=== PATIENT | female | born 1950 | race Caucasian/White ===

== ENCOUNTER 2018-10-26 14:15 | Emergency (ER) | payer MEDICARE, SELFPAY ==
[2018-10-26] VITALS (16 sets, daily range): BP systolic 103–132; BP diastolic 51–88; PULSE 16–86; RESP 10–23; TEMP 36.3–36.6; O2SAT 95–100; BMI 34.4
--- NOTE | 2018-10-26 14:28 | DI.RAD.S_ITS ---
PROCEDURE: XR HUMERUS RT 2V INDICATIONS: pain injury TECHNIQUE: 2 views of the humerus were acquired. COMPARISON: None. FINDINGS: The humeral head of the right shoulder is noted to be positioned anterior to the glenoid, compatible with anterior dislocation. There may be a Hill-Sachs deformity of the posterosuperior aspect of the humeral head. Anteroinferior margin of the glenoid is grossly intact. No suspicious osseous lesions are present. The overlying soft tissues are unremarkable. There are mild to moderate degenerative changes of the acromioclavicular joint on the right. IMPRESSION: 1. Anterior right shoulder dislocation. 2. Probable Hill-Sachs deformity of the humeral head. Dictated by: Wyatt Aleman M.D. on 10/26/2018 at 14:11 Approved by: Wyatt Aleman M.D. on 10/26/2018 at 14:14
[2018-10-26] MEDS: PROPOFOL 200 MG/20 ML VIAL 100 MG IV (15:00)
--- NOTE | 2018-10-26 15:05 | DI.RAD.S_ITS ---
PROCEDURE: XR SHOULDER RT MIN 2V INDICATIONS: reduction TECHNIQUE: 2 views of the shoulder were acquired. COMPARISON: [facility], CR, XR HUMERUS RT 2V, 10/26/2018, 14:55. FINDINGS: Bones: There is interval reduction of earlier noted anterior dislocation of glenohumeral joint. Right shoulder alignment is now anatomic. No gross fracture is seen. 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 No suspicious bony lesions. Visualized ribs appear intact. Soft tissues: No suspicious soft tissue calcifications. IMPRESSION: Interval reduction of previously noted glenohumeral joint dislocation with anatomic shoulder alignment. No obvious fracture is seen. Dictated by: Scott Stanford M.D. on 10/26/2018 at 15:22 Approved by: Scott Stanford M.D. on 10/26/2018 at 15:26
--- NOTE | 2018-10-26 15:28 | ED.UPPEXIN ---
HPI - Extremity Injury (Upper) General Chief Complaint: Extremity Injury, Upper Stated Complaint: Fell, R arm pain Time Seen by Provider: 10/26/18 14:41 Source: patient and EMS Mode of arrival: EMS Limitations: no limitations History of Present Illness HPI narrative: Patient is 68-year-old female who is currently in the process of moving she tripped over a rug and landed on her right shoulder. She has an obvious deformity of her right shoulder she is able to move her fingers no numbness or tingling. She also hit her right upper lip no head injury no loss of consciousness. She has no neck pain he is not on any anti-platelet or anticoagulation medication. MD complaint: injury to: right and shoulder Related Data Previous Rx's Medication Instructions Recorded hydrocodone-acetaminophen [[place]] 1 tab PO Q6H PRN #10 tab 10/26/18 Allergies Allergy/AdvReac Type Severity Reaction Status Date / Time Penicillins Allergy Verified 10/26/18 14:26 Review of Systems Review of Systems GENERAL: Denies chills, fatigue, malaise, fever, sweats, travel HEENT: Denies sinus pain, ear pain, sore throat, difficulty swallowing, neck pain RESPIRATORY: Denies dyspnea, cough, wheezing, hemoptysis, sputum. CARDIOVASCULAR: Denies chest pain, palpitations, orthopnea, edema GASTROINTESTINAL: Denies nausea, vomiting, abdominal pain, diarrhea, constipation, melena. : Denies dysuria, frequency, incontinence, hematuria, urinary retention, flank pain. MUSCULOSKELETAL: See HPI SKIN: No rash, no erythema, no pruritus NEUROLOGIC: Denies weakness, dizziness, headache, numbness, change in speech, confusion PSYCHIATRIC: No concerning psychosocial issues. 12 point review of systems is negative except for those stated above and HPI [facility] Medical History Patient denies medical problems (Acute) Social History Smoking Status: Never smoker alcohol intake: current substance use type: does not use Exam Initial Vital Signs Initial Vital Signs: Vital Signs Temperature 97.8 F 10/26/18 14:26 Pulse Rate 84 10/26/18 14:26 Respiratory Rate 19 10/26/18 14:26 Blood Pressure 126/51 L 10/26/18 14:26 Pulse Oximetry 96 10/26/18 14:26 Alert pleasant female HEENT: Head atraumatic, no crepitations no depressions no contusion, EOMI, pupils reactive, right upper lip swollen and contusion. Teeth intact NECK: Supple no tenderness turning full rotation right and left flexion and extension CARDIOVASCULAR: Regular rate and rhythm without murmurs, rubs or gallops. RESPIRATORY: Breath sounds equal bilaterally, no wheezes rales or rhonchi. ABDOMEN: Soft, nontender. Normoactive bowel sounds all 4 quadrants. No guarding or rebound. EXTREMITIES: Normal range of motion, no clubbing or edema. Neurovascularly intact Right shoulder obvious deformity no clavicle step-off sensation intact her deltoid able to move wrist and fingers radial median and ulnar nerve intact distal radial pulse intact NEUROLOGICAL: Alert and oriented x4.Normal gait and speech SKIN: Warm, dry, no laceration, no petechiae, no rashes or lesions. Procedures Orthopedic Joint Reduction Joint #1: Time Out Performed: Yes Side: right Joint Reduction Location: shoulder Analgesia: procedural sedation Shoulder Technique Used (if applicable): traction/counter-traction and external rotation Post-reduction neuro exam: intact and no change Post-reduction vascular: intact and no change Post Reduction X-Ray Obtained: Yes Post Reduction X-Ray Results: reduced Splint Applied: Yes Patient Tolerated Procedure: Well Procedural Sedation Patient Age: Patient is 5yrs or older Indication: fracture/dislocation reduction ASA Class: I Mallampati Airway Classification: Class I Preparation: quality assurance monitor final applied, pulse oximeter, capnometry used and supplemental O2 applied IV Propofol dose (mg): 100 Time of Sedation (Min): 15 ED Sedation Level: Moderate (Concious) Patient Tolerated Procedure: Well Complications: none Course Orders Ordered: ED Orders 10/26/18 14:28 XR humerus RT 2V Stat 10/26/18 15:05 XR shoulder RT min 2V Stat Discontinued Medications Propofol (Diprivan) 100 mg IV NOW ONE Stop: 10/26/18 15:50 Last Admin: 10/26/18 15:00 Dose: 100 mg Vital Signs - 8 hr 10/26/18 14:26 10/26/18 14:45 10/26/18 14:55 Temperature 97.8 F 97.4 F L Pulse Rate 84 75 Pulse Rate [Right Radial] 77 Respiratory Rate 19 16 Blood Pressure 126/51 L Blood Pressure [Left Arm] 132/64 Pulse Oximetry 96 100 10/26/18 15:00 10/26/18 15:05 10/26/18 15:10 Temperature Pulse Rate 77 72 78 Pulse Rate [Right Radial] Respiratory Rate 12 10 L 10 L Blood Pressure Blood Pressure [Left Arm] 129/69 117/55 L 103/87 Pulse Oximetry 100 98 95 10/26/18 15:15 10/26/18 15:20 10/26/18 15:25 Temperature Pulse Rate 72 16 L 72 Pulse Rate [Right Radial] Respiratory Rate 14 16 16 Blood Pressure Blood Pressure [Left Arm] 113/81 126/55 L 128/59 L Pulse Oximetry 99 99 100 10/26/18 15:30 10/26/18 15:35 10/26/18 15:36 Temperature Pulse Rate 77 79 86 Pulse Rate [Right Radial] Respiratory Rate 14 16 23 Blood Pressure Blood Pressure [Left Arm] 120/88 116/64 Pulse Oximetry 100 100 10/26/18 15:39 10/26/18 15:40 10/26/18 15:45 Temperature 97.4 F L Pulse Rate 77 72 Pulse Rate [Right Radial] 77 Respiratory Rate 16 16 Blood Pressure Blood Pressure [Left Arm] 123/62 131/64 Pulse Oximetry 100 100 10/26/18 17:09 Temperature 97.4 F L Pulse Rate 78 Pulse Rate [Right Radial] Respiratory Rate 16 Blood Pressure 124/74 Blood Pressure [Left Arm] Pulse Oximetry 100 MDM - Extremity Injury (Upper) Lab Data Point of Care Testing Test Results Negative Imaging Data right shoulder XR #1: Radiologist's impression: PROCEDURE: XR HUMERUS RT 2V INDICATIONS: pain injury TECHNIQUE: 2 views of the humerus were acquired. COMPARISON: None. FINDINGS: The humeral head of the right shoulder is noted to be positioned anterior to the glenoid, compatible with anterior dislocation. There may be a Hill-Sachs deformity of the posterosuperior aspect of the humeral head. Anteroinferior margin of the glenoid is grossly intact. No suspicious osseous lesions are present. The overlying soft tissues are unremarkable. There are mild to moderate degenerative changes of the acromioclavicular joint on the right. IMPRESSION: 1. Anterior right shoulder dislocation. 2. Probable Hill-Sachs deformity of the humeral head. Dictated by: Wyatt Aleman M.D. on 10/26/2018 at 14:11 right shoulder XR #2: Radiologist's impression: PROCEDURE: XR SHOULDER RT MIN 2V INDICATIONS: reduction TECHNIQUE: 2 views of the shoulder were acquired. COMPARISON: [facility], CR, XR HUMERUS RT 2V, 10/26/2018, 14:55. FINDINGS: Bones: There is interval reduction of earlier noted anterior dislocation of glenohumeral joint. Right shoulder alignment is now anatomic. No gross fracture is seen. 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 No suspicious bony lesions. Visualized ribs appear intact. Soft tissues: No suspicious soft tissue calcifications. IMPRESSION: Interval reduction of previously noted glenohumeral joint dislocation with anatomic shoulder alignment. No obvious fracture is seen. Dictated by: Scott Stanford M.D. on 10/26/2018 at 15:22 MDM Narrative Medical decision making narrative: Patient tolerated procedure sedation well. She is awake alert neurovascularly intact. Feels ready and able to go home. She has a ride. Consent signed and in chart. Discharge Plan Departure Patient Disposition: Home Clinical Impression: Dislocation of right shoulder joint Discharge Date/Time: 10/26/18 17:00 Interventions: ED Discharge Assessment Last Done: 10/26/18 17:09 Instructions: DI for Shoulder Dislocation Activity Restrictions/Additional Instructions: *You have been diagnosed with right shoulder dislocation *What to do: Keep arm in sling for the next 1-2 days may remove as needed increase activity as tolerated *Continue to take medications as directed [place] 1 tablet every 6 hr if needed for severe pain Motrin 600 mg every 6-8 hours if needed for [id number] *Follow up with your primary care provider in 2-3 days *Return to ER if you should have numbness, tingling, increased pain or any new, worsening or concerning symptoms CONTROLLED SUBSTANCE DISCHARGE (Narcotoic/benzodiazepine/Flexeril/Phenergan) 1. You have been prescribed narcotic medications, it does have acetaminophen/Tylenol/paracetamol in it so do not take extra Tylenol or Tylenol containing products 2. Please understand that we cannot provide further refills of narcotics, benzodiazepines or controlled substances through the ED and her pain management will need to be through your provider. 3. While on these medications you cannot drive or operate heavy machinery. 4. You cannot sign legal documents or perform any duties such as this. 5. As long as you're taking opiate pain medications he should also be taking a stool softener such as Colace, Dulcolax, MiraLAX or prune juice, to help avoid constipation. Prescriptions: New hydrocodone-acetaminophen [[place]] 5-325 mg tablet 1 tab PO Q6H PRN (Reason: pain) Qty: 10 RF: 0 Referrals: [facility] [Provider Group]
== END 2018-10-26 17:00 | disposition home or self-care (01) ==
PROVIDERS: Emergency Provider Emergency Medicine
DX: S43.004A Unspecified dislocation of right shoulder joint, initial encounter (principal); W01.0XXA Fall on same level from slipping, tripping and stumbling without subsequent striking against object, initial encounter
CPT/HCPCS: 23650; 73030; 73060; 94770; 99152; 99284; 99285; J2704

== ENCOUNTER → 2019-03-22 15:44 | Outpatient (CLI) | payer MEDICARE, SELFPAY ==
--- NOTE | 2019-03-22 | DI.ECHO.S_ITS ---
[place] [facility]---------+ [facility] +---------+ : : [address] : : : : [id number] : : : : Phone: [phone] Echocardiogram Report + + :Name: ANNA ESTEVES Study Date: 03/22/2019 Height: 69 in : :[facility] Exam Location: [facility] Weight: 223 lb : : Gender: Female BSA: 2.2 m2 : :: 1950 Age: 68 yrs BP: 126/72 mmHg: :Reason For Study: Murmur : :Ordering Physician: Mimi : :[place] Performed By: Rocio Garcia : + + Interpretation Summary The left ventricle is normal in size, wall thickness, and systolic function without any focal wall motion abnormalities. The ejection fraction is estimated to be 60-65%. Diastolic parameters suggest probable normal left ventricular diastolic function and normal filling pressures. The right ventricle is normal in size and function. Right ventricular systolic pressure is estimated to be 24 mmHg plus the clinically estimated CVP which cannot be estimated on this exam. Both atria are normal in size. There is moderate aortic stenosis. The peak aortic velocity is 3.0 m/sec. The calculated aortic valve area is 1.1 cm2. There is no other significant valvular heart disease. The aortic root is normal size. Procedure: A two-dimensional transthoracic echocardiogram with color flow and Doppler was performed. The study quality was technically adequate. There is no prior echocardiogram noted for this patient. The patient was in normal sinus rhythm during the exam. Left Ventricle: The left ventricle is normal in size, wall thickness, and systolic function without any focal wall motion abnormalities. The ejection fraction is estimated to be 60-65%. Diastolic parameters suggest probable normal left ventricular diastolic function and normal filling pressures. Right Ventricle: The right ventricle is normal in size and function. Atria: Both atria are normal in size. There is no Doppler evidence for an interatrial shunt. Mitral Valve: The mitral valve leaflets appear mildly thickened, but open well. There is trace mitral regurgitation. Aortic Valve: The aortic valve is trileaflet. The aortic valve is mildly calcified. There is moderate aortic stenosis. The peak aortic velocity is 3.0 m/sec. The aortic valve mean gradient is 17.8 mmHg. The calculated aortic valve area is 1.1 cm2. There is trace aortic regurgitation. Tricuspid Valve: The tricuspid valve is normal in structure and function. There is trace tricuspid regurgitation. Right ventricular systolic pressure is estimated to be 24 mmHg plus the clinically estimated CVP which cannot be estimated on this exam. Pulmonic Valve: The pulmonic valve is not well seen, but is grossly normal. There is mild pulmonic regurgitation. There is no other significant valvular heart disease. Great Vessels: The aortic root is normal size. The ascending aorta is normal in size. The pulmonary artery is not well visualized, but is probably normal size. The inferior vena cava was not well visualized. The IVC has a measurement of 1.4 mm. Pericardium/ Pleura There is no pericardial effusion. There is no pleural effusion. MMode/2D Measurements & Calculations LVIDd: 4.0 cm LVOT diam: 2.1 cm LVIDs: 2.9 cm Ao root diam: 3.0 cm FS: 28.9 % asc Aorta Diam: 3.1 cm EPSS: 0.39 cm Ao Arch Diam (Prox Trans): 2.9 cm IVSd: 0.89 cm LVPWd: 0.82 cm LV howard. diameter/BSA (cm/m^2): 1.9 LV sys. diameter/BSA (cm/m^2): 1.3 LA A2 area: 17.9 cm2 RA long axis: 6.1 cm LA A4 area: 22.7 cm2 RA area: 19.2 cm2 LA length (vol): 5.9 cm RA vol: 51.6 ml LA vol: 58.0 ml RA : 23.8 ml/m2 LA vol index: 26.8 ml/m2 IVC diam: 1.4 cm RVD1 (basal): 4.2 cm RVD2 (mid): 3.3 cm Doppler Measurements & Calculations Ao V2 max: 297.9 cm/sec LVOT Max Maciej: 83.7 cm/sec Ao V2 mean: 191.1 cm/sec LV V1 max P.8 mmHg Ao max P.5 mmHg LV V1 VTI: 19.5 cm Ao mean P.8 mmHg MAXI(I,D): 1.1 cm2 Ao V2 VTI: 63.6 cm MAXI(V,D): 0.97 cm2 sev ratio: 0.31 MAXI indexed to BSA (cm^2/m^2): 0.49 MV E max maciej: 82.9 cm/sec TR max maciej: 245.2 cm/sec MV A max maciej: 85.6 cm/sec TR max P.1 mmHg MV E/A: 0.97 PA V2 max: 80.3 cm/sec Med Peak E' Maciej: 6.2 cm/sec PA V2 mean: 54.7 cm/sec E/E' med: 13.4 PA mean P.3 mmHg Lat Peak E' Maciej: 7.7 cm/sec PA Accel Time: 0.11 sec E/E' lat: 10.8 E/e' average: 12.1 MV dec time: 0.19 sec MV P1/2t: 55.1 msec MV P1/2t max maciej: 80.7 cm/sec SV(LVOT): 67.7 ml MVA(P1/2t): 4.0 cm2 Reading Physician:06:50 PM
== END ==
PROVIDERS: PCP Internal Medicine; Visit Provider Internal Medicine
DX: I35.0 Nonrheumatic aortic (valve) stenosis (principal); I37.1 Nonrheumatic pulmonary valve insufficiency; R01.1 Cardiac murmur, unspecified
CPT/HCPCS: 93306

== ENCOUNTER → 2019-06-25 10:32 | Outpatient (CLI) | payer MEDICARE, SELFPAY ==
--- NOTE | 2019-06-25 | DI.CT.S_ITS ---
PROCEDURE: CT SINUS SCREEN WO CON INDICATIONS: Acute recurrent sinusitis, unspecified TECHNIQUE: Noncontrast 3.0 mm axial images acquired from the frontal sinuses to the mid-sella, with coronal and sagittal reformats. For radiation dose reduction, the following was used: automated exposure control, adjustment of mA and/or kV according to patient size. COMPARISON: None. FINDINGS: Image quality: Excellent. Maxillary Sinuses: No bony remodeling or destruction. Sinuses are clear. Ethmoid Air Cells: No bony remodeling or destruction. Sinuses are clear. Sphenoid Sinuses: No bony remodeling or destruction. Sinuses are clear. Frontal Sinuses: No bony remodeling or destruction. Sinuses are clear. Ostiomeatal Complexes: Ostiomeatal complexes are patent. No Kelley cells. Miscellaneous: Visualized intra-orbital contents are normal. No morena bullosa or paradoxical turbinate curvature. There is moderate leftward nasal septal deviation. Incidental note is made of hyperostosis frontalis. This is not considered to be pathologic in a woman of this age. Focal degenerative change is seen of the right temporomandibular joint, with spur formation, as on series 5 image 56. IMPRESSION: No significant active paranasal sinus disease is seen. Moderate leftward nasal septal deviation seen. Focal right TMJ degeneration. If it would be helpful for clinical management decision making, please consider a dedicated TMJ protocol MRI, performed with closed mouth and open-mouth images for further evaluation (assuming that there is no contraindication). Dictated by: Campos Franco M.D. on 06/25/2019 at 9:48 Approved by: Campos Franco M.D. on 06/25/2019 at 9:50
== END ==
PROVIDERS: PCP Internal Medicine; Visit Provider Otolaryngology
DX: J01.91 Acute recurrent sinusitis, unspecified (principal); J34.89 Other specified disorders of nose and nasal sinuses; J34.2 Deviated nasal septum; M26.69 Other specified disorders of temporomandibular joint
CPT/HCPCS: 70486

== ENCOUNTER → 2019-08-18 10:18 | Outpatient (CLI) | payer MEDICARE, SELFPAY ==
[2019-08-18 12:07] LABS: Alanine Aminotransferase 17 IU/L (9-52); Albumin 4.2 g/dL (3.5-5.0); Albumin Globulin Ratio 1.4 (1.0-2.8); Alkaline Phosphatase 90 U/L (38-126); Aspartate Aminotransferase 25 IU/L (14-36); BUN Creatinine Ratio 15.6 (6-22); Bilirubin Total 0.6 mg/dL (0.2-1.3); Blood Urea Nitrogen 14 mg/dL (7-17); Calcium 9.7 mg/dL (8.4-10.2); Carbon Dioxide 27 mmol/L (22-32); Chloride 102 mmol/L (98-107); Cholesterol 226 mg/dL (140-199); Estimated Glomerular Filt Rate > 60.0 mL/min (>60); Glucose 84 mg/dL (80-110); HDL Cholesterol 48 mg/dL (40-60); HEMOLYSIS < 15 (0-50); LDL Cholesterol Calculated 153 mg/dL (<100); Sodium 138 mmol/L (137-145); Total Protein 7.2 g/dL (6.3-8.2); Triglycerides 124 mg/dL (35-150)
[2019-08-18 12:11] LABS: Add Manual Diff / Slide Review NO; Basophils Absolute Auto 0 /uL (0-100); Basophils Percent Auto 0.5 % (0-2); Eosinophils Absolute Auto 100 /uL (0-450); Eosinophils Percent Auto 1.4 % (2-4); Hematocrit 40.8 % (36-46); Lymphocytes Absolute Auto 1600 /uL (1100-4500); Lymphocytes Percent Auto 32.4 % (25-40); Mean Corpuscular HGB Conc 34.4 % (30-36); Mean Corpuscular Hemoglobin 31.6 PG (26-34); Mean Corpuscular Volume 91.9 fL (80-100); Monocytes Absolute Auto 700 /uL (0-900); Monocytes Percent Auto 13.3 % (3-14); Neutrophils Absolute Auto 2600 /uL (1500-7000); Neutrophils Percent Auto 52.4 % (50-75); Platelet Count 250 X10^3/uL (150-400); Red Blood Cell Count 4.44 X10^6/uL (4.0-5.2); Red Cell Distribution Width 13.9 % (11.6-14.8); White Blood Cell Count 4.9 X10^3/uL (4.5-11.0)
[2019-08-18 12:55] LABS: TSH w/ Reflex to FT4 0.55 uIU/mL (0.47-4.68)
== END ==
PROVIDERS: PCP Internal Medicine; Visit Provider Physician Assistant
DX: E78.2 Mixed hyperlipidemia (principal); E03.9 Hypothyroidism, unspecified
CPT/HCPCS: 36415; 80053; 80061; 84443; 85025

== ENCOUNTER → 2019-09-03 13:19 | Outpatient (CLI) | payer MEDICARE, SELFPAY ==
[2019-09-03 15:38] LABS: Vitamin B12 258 pg/mL (239-931)
[2019-09-06 21:49] LABS: Albumin 3.6 g/dL (3.8-4.8); Alpha 1 Globulin 0.4 g/dL (0.2-0.3); Alpha 2 Globulin 0.7 g/dL (0.5-0.9); Beta 1 Globulin 0.5 g/dL (0.4-0.6); Protein, Total 6.7 g/dL (6.1-8.1)
== END ==
PROVIDERS: PCP Internal Medicine; Visit Provider Internal Medicine
DX: Z00.00 Encounter for general adult medical examination without abnormal findings (principal)
CPT/HCPCS: 36415; 82607; 84155; 84165

== ENCOUNTER → 2019-09-10 12:32 | Outpatient (CLI) | payer MEDICARE, SELFPAY ==
--- NOTE | 2019-09-10 | DI.MRI.S_ITS ---
PROCEDURE: MR LUMBAR SPINE WO CON INDICATIONS: Radiculopathy, lumbar region TECHNIQUE: Noncontrast sagittal T1 spin echo and T2 fast echo, sagittal STIR, axial T1 and T2 fast spin echo through the lumbar spine. In cases with scoliosis, additional coronal T2 fast spin echo may be performed. COMPARISON: None. FINDINGS: Image quality: Excellent. Alignment and Curvature: There is mild retrolisthesis seen at L2-L3, L3-L4, L4-L5, and L5-S1. Bone Marrow: Marrow is of normal overall signal. No acute vertebral body compression fractures. Spinal Cord: Conus medullaris terminates at the L1 level. Visualized cord demonstrates normal signal and size. Paraspinous Soft Tissues: No paravertebral masses. T11-T12: Moderate loss of disc height and disc signal are seen. Mild to moderate disc bulge is seen. No significant neural foraminal or central canal narrowing can be seen. T12-L1: Normal appearance. L1-L2: Normal appearance. L2-L3: There is at least moderate loss of disc height and disc signal seen. Endplate irregularity is seen. Reactive marrow endplate changes are seen, which are hyperintense on T1-weighted and T2-weighted imaging and most consistent with fatty metaplasia (Modic type II changes). There is at least moderate disc bulge seen, which is eccentric to the right. There is moderate bilateral neural foraminal narrowing seen, right worse than left. Moderate central canal narrowing is seen. L3-L4: Moderate loss of disc height is seen. Loss of disc signal is seen. Reactive marrow endplate changes are seen, which are hyperintense on T1-weighted and T2-weighted imaging and most consistent with fatty metaplasia (Modic type II changes). Moderate disc bulge is seen, which is eccentric to the left side. Moderate facet joint hypertrophy is seen. Moderate central canal narrowing is seen. L4-L5: Moderate loss of disc height is seen. Loss of disc signal is seen. There is at least moderate disc bulge seen, which is eccentric to the right. Reactive marrow endplate changes are seen, which are hyperintense on T1-weighted and T2-weighted imaging and most consistent with fatty metaplasia (Modic type II changes). Moderate to prominent right-sided and moderate left-sided neural foraminal narrowing can be seen. There is at least moderate bilateral neural foraminal narrowing seen. There is a degree of compression seen upon the exiting nerve roots. Moderate central canal narrowing is seen. L5-S1: At least moderate loss of disc height and disc signal can be seen. Moderate disc bulge is seen at this level. Moderate facet joint hypertrophy is seen. At least moderate bilateral neural foraminal narrowing is seen. There is a degree of compression seen upon the exiting nerve roots. Mild central canal narrowing is seen. IMPRESSION: Multiple levels of relatively prominent lumbar spine degenerative changes are seen. Dictated by: Campos Franco M.D. on 09/10/2019 at 14:44 Approved by: Campos Franco M.D. on 09/10/2019 at 14:48
== END ==
PROVIDERS: PCP Internal Medicine; Visit Provider Internal Medicine
DX: M51.16 Intervertebral disc disorders with radiculopathy, lumbar region (principal)
CPT/HCPCS: 72148

== ENCOUNTER → 2019-09-24 18:31 | Outpatient (ROUT) | payer MEDICARE, SELFPAY ==
[2019-09-28 23:39] LABS: Intrinsic Factor Blocking Aby NEGATIVE
== END ==
PROVIDERS: PCP Internal Medicine; Visit Provider Internal Medicine
DX: E53.8 Deficiency of other specified B group vitamins (principal)
CPT/HCPCS: 86340

== ENCOUNTER → 2019-10-16 09:47 | Outpatient (CLI) | payer MEDICARE, SELFPAY ==
--- NOTE | 2019-10-16 | DI.MG.S_ITS ---
BILATERAL DIGITAL SCREENING MAMMOGRAM 3D/2D WITH CAD: 10/16/2019 CLINICAL: Routine screening. Comparison is made to exams dated: 08/16/2010 mammogram, 04/26/2014 mammogram, and 08/21/2016 mammogram - [facility]. There are scattered fibroglandular elements in both breasts. Current study was also evaluated with a Computer Aided Detection (CAD) system. No significant masses, calcifications, or other findings are seen in either breast. There has been no significant interval change. IMPRESSION: NEGATIVE There is no mammographic evidence of malignancy. A 1 year screening mammogram is recommended. This exam was interpreted at Station ID: [id number]. NOTE: For mammograms, a report in lay terms will be sent to the patient. Approximately 15% of breast malignancies will not be visualized mammographically. In the management of a palpable breast mass, a negative mammogram must not discourage biopsy of a clinically suspicious lesion. Electronically Signed By: Sherwin Kent M.D. at/andrew:10/18/2019 07:57:07 letter sent: Normal Exam ACR BI-RADS Category 1: Negative [id number]
== END ==
PROVIDERS: PCP Internal Medicine; Visit Provider Internal Medicine
DX: Z12.31 Encounter for screening mammogram for malignant neoplasm of breast (principal)
CPT/HCPCS: 77063; 77067

== ENCOUNTER → 2020-07-04 12:46 | Outpatient (CLI) | payer MEDICARE, SELFPAY ==
--- NOTE | 2020-07-04 12:48 | DI.RAD.S_ITS ---
PROCEDURE: XR LUMBAR SPINE MIN 4V INDICATIONS: back pain TECHNIQUE: 5 views of the lumbar spine were acquired. COMPARISON: None. FINDINGS: Bones: 5 nonrib-bearing vertebrae are present. There is normal bony alignment. Degenerative endplate changes and bilateral facet arthrosis throughout lumbar spine is seen. No vertebral body compression fractures. No suspicious bony lesions. Soft tissues: Overlying bowel gas pattern is normal. No suspicious soft tissue calcifications. Oblique images: No pars defects. No significant bony foraminal stenosis. IMPRESSION: Degenerative disc disease throughout lumbar spine. No acute compression fracture or spondylolisthesis. No gross pars defect or significant bony foraminal stenosis. Dictated by: Scott Stanford M.D. on 07/04/2020 at 14:16 Approved by: Scott Stanford M.D. on 07/04/2020 at 14:16
== END ==
PROVIDERS: PCP Internal Medicine; Referring Provider Internal Medicine; Visit Provider Physical Medicine & Rehabilitation
DX: M51.26 Other intervertebral disc displacement, lumbar region (principal); M51.36 Other intervertebral disc degeneration, lumbar region
CPT/HCPCS: 72110

== ENCOUNTER → 2020-07-24 14:20 | Outpatient (CLI) | payer MEDICARE, SELFPAY ==
[2020-07-25 07:42] LABS: COVID19 Sendout Not Detected (Not Detect)
== END ==
PROVIDERS: PCP Internal Medicine; Visit Provider Physician Assistant
DX: Z11.59 Encounter for screening for other viral diseases (principal)
CPT/HCPCS: 87635

== ENCOUNTER 2020-07-27 13:48 | Outpatient (CLI) | payer MEDICARE, SELFPAY ==
[2020-07-27] VITALS (10 sets, daily range): BP systolic 112–133; BP diastolic 55–72; PULSE 82–93; RESP 10–23; O2SAT 98–100
--- NOTE | 2020-07-27 13:53 | DI.RAD.S_ITS ---
PROCEDURE: PAIN L/S TRANSFORAMINAL INJECT INDICATIONS: SPONDYLOSIS COMPARISON: None. FINDINGS: Fluoroscopic spot filming was performed to verify placement of spinal needles at the right L4-L5 epidural space via trans foraminal approach as labeled on the films. Appropriate location(s) of the needle tip(s) was confirmed by injection of iodinated contrast. IMPRESSION: Access needle at the right L4-L5 epidural space. Dictated by: Gretel Leslie MD, PhD on 07/27/2020 at 15:34 Approved by: Gretel Leslie MD, PhD on 07/27/2020 at 15:34
[2020-07-27] MEDS: fentaNYL 100 MCG/2 ML INJ 50 MCG IV (14:41)
[2020-07-27] MEDS: BETAMETHASONE 30 MG/5 ML MDV 6 MG INJ (14:47)
[2020-07-27] MEDS: DEXAMETHASONE 10 MG/ML VIAL 20 MG INJ (14:47)
[2020-07-27] MEDS: BUPIVACAINE 0.25% (PF) VIAL 2 ML INJ (14:48)
[2020-07-27] MEDS: IOPAMIDOL 15 ML VIAL 3 ML INJ (14:48)
[2020-07-27] MEDS: MIDAZOLAM 5 MG/5 ML VIAL IV (14:48)
--- NOTE | 2020-07-27 15:00 | P.PCN_ITS ---
Date/Time/Diagnoses Date of procedure: 07/27/20 Time of procedure: 15:00 Pre-procedure diagnosis: 1. FORAMINAL STENOSIS WITH LE SYMPTOMS Post-procedure diagnosis: same Procedure Notes Procedure: 1. FLUOROSCOPICALLY GUIDED CONTRAST CONTROLLED TRANSFORAMINAL EPIDURAL STEROID INJECTION - RIGHT L4/5 TFESI Indications: Mere is referred by Dr. Gilliland for treatment of Foraminal Stenosis with Right LE Symptoms Physician: Cristino Horn Total Fluoroscopy time (seconds): 9 Total sedation minutes: 12 Complications: none Procedure in detail & Post-procedure care: FINDINGS Foraminal Nerve Root Compression secondary to disc disease and facet hypertrophy DESCRIPTION OF PROCEDURE Following review of allergy and review of potential side effects and complications, including, but not necessarily limited to, infection, allergic reaction, local tissue breakdown, stroke, temporary or permanent nerve injury, paralysis, and possible , the patient indicated that the patient understood and agreed to proceed. An informed consent document was signed by the patient, witnessed by a nurse, and placed in the patient's chart. Additionally, other treatment options including medications, modalities, and physical therapy were reviewed with the patient. After review of previous anaesthesic history and IV conscious sedation the patient was deemed safe to proceed with today?s procedure with IV conscious sedation as ASA class II designation. Safety time-out was performed to confirm patient ID, procedure to be performed and site of procedure. IV sedation was accomplished with a combination of 3mg of Versed and 50mcg of Fentanyl was administered by the RN after DO order, titrated to patient comfort during the course of the procedure while the patient remained responsive to all verbal commands In the prone position following sterile prep and drape of the lumbar region, the Right L4/5 posterior neuroforamen was identified fluoroscopically. The skin was anesthetized via a 25-gauge 1.5-inch needle with 1% lidocaine solution. At this point, a 22-gauge 5-inch spinal needle was atraumatically introduced and advanced under fluoroscopic guidance through the posterior Right L4/5 neuroforamen to approximately the anterior aspect of the canal. Depth was confirmed on lateral view. Following negative aspiration, injection of approximately 1.5cc of Isovue 200 under live fluoroscopy in the AP view confirmed excellent flow along the nerve root, into the epidural space without vascular or intrathecal uptake observed Radiological data, including multiple fluoroscopic views of the lumbosacral spine, reveal a spinal needle at the right L4/5 posterior neuroforamen. Subsequent views show flow of contrast material flowing superiorly and inferiorly along the nerve root confirming epidural flow. Subsequently, a test dose of 1.5 cc of 1% lidocaine solution was administered and patient was observed for two minutes for signs or symptoms of complications, including abdominal pain, shortness of breath, bilateral upper or lower extremity weakness, nausea and vomiting, prior to steroid injection. At this point, a total of 3cc or 20mg of dexamethasone and 6mg of betamethasone was injected without incident. The procedure tolerated the procedure well without signs or symptoms of complications prior to transfer to the recovery area continued monitoring without incident. The patient was then transferred to the recovery area where they were observed for an appropriate time after the injection. The patient reported a VAS score of 7 prior to the procedure and a post- procedure VAS of 0. POST OP INSTRUCTIONS The patient was provided a Pain Log to continue to record their response to the target-specific procedure prior to follow-up visit with their referring physician. Additionally, specific post-injection care instructions and a contact number to our office were provided if concerns arise regarding possible complications associated with the procedure are suspected.
--- NOTE | 2020-07-27 16:04 | PC.NURSE ---
All Sedation Medication administered by FAUSTO Amaya. All other procedural meds administered by Dr. Horn
--- NOTE | 2020-07-27 16:04 | PC.NURSE ---
All Sedation Medication administered by FAUSTO Amaya. All other procedural meds administered by Dr. Horn
== END 2020-07-27 15:44 | disposition home or self-care (01) ==
PROVIDERS: PCP Internal Medicine; Referring Provider Physical Medicine & Rehabilitation; Visit Provider Physical Medicine & Rehabilitation
DX: M48.061 Spinal stenosis, lumbar region without neurogenic claudication (principal); M51.16 Intervertebral disc disorders with radiculopathy, lumbar region
CPT/HCPCS: 64483; 99152; J0702; J1100; J2250; J3010

== ENCOUNTER → 2020-09-07 14:40 | Outpatient (ROUT) | payer MEDICARE, SELFPAY ==
[2020-09-07 14:56] LABS: Add Manual Diff / Slide Review NO; Basophils Absolute Auto 100 /uL (0-100); Eosinophils Absolute Auto 100 /uL (0-450); Eosinophils Percent Auto 1.2 % (2-4); Hematocrit 42.6 % (36-46); Lymphocytes Absolute Auto 1300 /uL (1100-4500); Mean Corpuscular HGB Conc 32.9 % (30-36); Mean Corpuscular Hemoglobin 31.1 PG (26-34); Mean Corpuscular Volume 94.5 fL (80-100); Monocytes Absolute Auto 700 /uL (0-900); Monocytes Percent Auto 12.2 % (3-14); Neutrophils Absolute Auto 3800 /uL (1500-7000); Neutrophils Percent Auto 63.6 % (50-75); Platelet Count 237 X10^3/uL (150-400); Red Blood Cell Count 4.51 X10^6/uL (4.0-5.2); Red Cell Distribution Width 14.1 % (11.6-14.8)
[2020-09-07 15:07] LABS: Alanine Aminotransferase 12 IU/L (<35); Albumin 3.7 g/dL (3.5-5.0); Albumin Globulin Ratio 1.2 (1.0-2.8); Alkaline Phosphatase 89 U/L (38-126); Aspartate Aminotransferase 24 IU/L (14-36); BUN Creatinine Ratio 17.2 (6-22); Bilirubin Total 0.7 mg/dL (0.2-1.3); Blood Urea Nitrogen 15 mg/dL (7-17); Calcium 9.5 mg/dL (8.4-10.2); Carbon Dioxide 29 mmol/L (22-32); Chloride 105 mmol/L (98-107); Cholesterol 163 mg/dL (140-199); Estimated Glomerular Filt Rate > 60.0 mL/min (>60); Glucose 88 mg/dL (80-110); HDL Cholesterol 57 mg/dL (40-60); HEMOLYSIS < 15 (0-50); LDL Cholesterol Calculated 78 mg/dL (<100); Potassium 4.2 mmol/L (3.4-5.1); Sodium 138 mmol/L (137-145); Total Protein 6.7 g/dL (6.3-8.2); Triglycerides 139 mg/dL (35-150)
[2020-09-07 15:31] LABS: TSH w/ Reflex to FT4 0.66 uIU/mL (0.47-4.68)
[2020-09-07 15:49] LABS: Vitamin B12 474 pg/mL (239-931)
== END ==
PROVIDERS: PCP Internal Medicine; Visit Provider Internal Medicine
DX: E53.8 Deficiency of other specified B group vitamins (principal); E78.2 Mixed hyperlipidemia
CPT/HCPCS: 80053; 80061; 82607; 84443; 85025

== ENCOUNTER → 2020-11-17 11:01 | Outpatient (CLI) | payer MEDICARE, SELFPAY ==
[2020-11-17] MEDS: COVID-19 VACC #1, MRNA(MOD) 100 MCG/0.5 ML VIAL IM (11:04)
== END ==
PROVIDERS: PCP Internal Medicine; Visit Provider Internal Medicine
DX: Z23 Encounter for immunization (principal)
CPT/HCPCS: 0011A; 91301

== ENCOUNTER → 2020-11-30 14:52 | Outpatient (CLI) | payer MEDICARE, SELFPAY ==
--- NOTE | 2020-11-30 14:54 | DI.ECHO.S_ITS ---
[facility] +---------+ : : [address] : : : : [address] : : : : Phone: [phone]+ Echocardiogram Report + + :Name: ANNA ESTEVES Study Date: 11/30/2020 Height: 69.5 in: :[facility] ReadingLocation: Weight: 230 lb : : Gender: Female BSA: 2.2 m2 : :: 1950 Age: 70 yrs BP: 135/76 mmHg: :Reason For Study: AORTIC STENOSIS : :Ordering Physician: JENNIFER, : :JAYY Performed By: Radha Esposito : :Referring: JAYY ELI : + + Interpretation Summary 1) Normal left ventricular thickness, size, and systolic function (EF 60-65%). 2) Normal right ventricular size and function. 3) Moderate to severe aortic stenosis (valve area 0.9cm2, mean gradient 33mmHg, severity ratio 0.32). 4) Compared to the Echo done 03/22/2019, aortic stenosis has progressed from moderate to moderate-severe on this study. Procedure: A two-dimensional transthoracic echocardiogram with color flow and Doppler was performed. The study quality was technically difficult. Comparison is made with the echocardiogram of 03/22/2019. The patient was in sinus rhythm with heart rates between 73-87 bpm during the exam. Left Ventricle: The left ventricle is normal in size and wall thickness. The ejection fraction is estimated to be 60-65%. Left ventricular systolic function is normal. There are no obvious focal wall motion abnormalities noted but poor endocardial definition reduces the sensitivity for the detection of such. Right Ventricle: The right ventricle is normal in size and function. Atria: Both atria are normal in size. There is no Doppler evidence for an interatrial shunt. Mitral Valve: The mitral valve is normal in structure and function. There is trace mitral regurgitation. Aortic Valve: The aortic valve is moderately calcified. There is moderately reduced leaflet mobility. There is severe aortic stenosis. The peak aortic velocity is 3.7 m/sec. The aortic valve mean gradient is 33 mmHg. The calculated aortic valve area is .90 cm2. No aortic regurgitation is present. Tricuspid Valve: The tricuspid valve is not well visualized, but is grossly normal. There is mild tricuspid regurgitation. Pulmonary artery pressures cannot be estimated because of the lack of a measurable TR jet velocity. Pulmonic Valve: The pulmonic valve is not well visualized. There is trace pulmonic regurgitation. Great Vessels: The aortic root is normal size. The dimensions of the ascending aorta are normal. The inferior vena cava was not well visualized. Pericardium/ Pleura There is no pericardial effusion. There is no pleural effusion. MMode/2D Measurements & Calculations LVIDd: 4.6 cm LVOT diam: 1.9 cm LVIDs: 3.2 cm Ao root diam: 2.8 cm FS: 31.5 % asc Aorta Diam: 3.2 cm IVSd: 0.76 cm Ao Arch Diam (Prox Trans): 3.1 cm LVPWd: 0.95 cm LV howard. diameter/BSA (cm/m^2): 2.1 LV sys. diameter/BSA (cm/m^2): 1.4 LA A2 area: 18.2 cm2 RA long axis: 4.5 cm LA A4 area: 16.9 cm2 RA area: 14.2 cm2 LA length (vol): 5.2 cm RA vol: 38.2 ml LA vol: 50.3 ml RA : 17.3 ml/m2 LA vol index: 22.8 ml/m2 RVD1 (basal): 2.6 cm TAPSE: 1.7 cm Doppler Measurements & Calculations Ao V2 max: 365.7 cm/sec LVOT Max Maciej: 123.6 cm/sec Ao V2 mean: 274.2 cm/sec LV V1 max P.1 mmHg Ao max P.6 mmHg LV V1 VTI: 26.8 cm Ao mean P.4 mmHg MAXI(I,D): 0.90 cm2 Ao V2 VTI: 84.4 cm MAXI(V,D): 0.95 cm2 sev ratio: 0.32 MAXI indexed to BSA (cm^2/m^2): 0.41 MV E max maciej: 89.8 cm/sec PA V2 max: 89.5 cm/sec MV A max maciej: 114.3 cm/sec PA V2 mean: 60.3 cm/sec MV E/A: 0.79 PA mean P.7 mmHg Med Peak E' Maciej: 7.7 cm/sec PA pr(Accel): 48.2 mmHg E/E' med: 11.7 Lat Peak E' Maciej: 7.3 cm/sec E/E' lat: 12.3 E/e' average: 12.0 MV dec time: 0.26 sec SVLVOT): 75.7 ml Reading Physician:04:30 PM
== END ==
PROVIDERS: PCP Internal Medicine; Referring Provider Internal Medicine Cardiovascular Disease; Visit Provider Internal Medicine Cardiovascular Disease
DX: I08.2 Rheumatic disorders of both aortic and tricuspid valves (principal)
CPT/HCPCS: 93306

== ENCOUNTER → 2020-12-15 11:14 | Outpatient (CLI) | payer MEDICARE, SELFPAY ==
[2020-12-15] MEDS: COVID-19 VACC #2, MRNA(MOD) 100 MCG/0.5 ML VIAL IM (11:19)
== END ==
PROVIDERS: PCP Internal Medicine; Visit Provider Internal Medicine
DX: Z23 Encounter for immunization (principal)
CPT/HCPCS: 0012A; 91301

== ENCOUNTER → 2021-01-16 14:00 | Outpatient (CLI) | payer MEDICARE, SELFPAY ==
[2021-01-16 15:08] LABS: COVID19 -Nasal RAPID Negative (Negative)
== END ==
PROVIDERS: PCP Student in an Organized Health Care Education/Training Program; Visit Provider Physical Medicine & Rehabilitation
DX: Z20.822 Contact with and (suspected) exposure to COVID-19 (principal)
CPT/HCPCS: 87635; C9803

== ENCOUNTER 2021-01-18 13:43 | Outpatient (CLI) | payer MEDICARE, SELFPAY ==
[2021-01-18] VITALS (8 sets, daily range): BP systolic 106–151; BP diastolic 56–71; PULSE 75–80; RESP 16–22; TEMP 36.3; O2SAT 97–100
--- NOTE | 2021-01-18 13:44 | DI.RAD.S_ITS ---
PROCEDURE: PAIN L/S FACET INJ/BLK 1ST ALONZO COMPARISON: None. INDICATIONS: SPONDYLOSIS FINDINGS: Intraoperative images demonstrate axis needles at the level of the right L4-L5 and L5-S1 neural foramina. IMPRESSION: Access needles at the level of the right L4-L5 and right L5-S1 neural foramina. Dictated by: Gretel Leslie MD, PhD on 01/18/2021 at 14:46 Approved by: Gretel Leslie MD, PhD on 01/18/2021 at 14:47
[2021-01-18] MEDS: MIDAZOLAM 5 MG/5 ML VIAL IV (14:15)
[2021-01-18] MEDS: fentaNYL 100 MCG/2 ML INJ 50 MCG IV (14:15)
[2021-01-18] MEDS: BETAMETHASONE 30 MG/5 ML MDV 12 MG INJ (14:24)
[2021-01-18] MEDS: LIDOCAINE 1% 20 ML 10 ML INJ (14:24)
[2021-01-18] MEDS: BUPIVACAINE 0.5% (PF) VIAL 5 ML INJ (14:24)
[2021-01-18] MEDS: IOPAMIDOL 15 ML VIAL 3 ML INJ (14:24)
--- NOTE | 2021-01-18 14:35 | P.PCN_ITS ---
Date/Time/Diagnoses Date of procedure: 01/18/21 Time of procedure: 14:35 Pre-procedure diagnosis: 1. FACET ARTHROPATHY 2. AXIAL LBP 3. MULTILEVEL DDD Post-procedure diagnosis: same Procedure Notes Procedure: 1. FLUOROSCOPICALLY GUIDED CONTRAST CONTROLLED FACET JOINT INJECTIONS BILATERAL L4/5, L5/S1 Indications: Mere is referred by Dr. Gutiérrez for treatment of Axial LBP Physician: Cristino Horn Total Fluoroscopy time (seconds): 10 Total sedation minutes: 15 Complications: none Procedure in detail & Post-procedure care: FINDINGS Multilevel Facet Arthropathy with Clinically significant axial LBP DESCRIPTION OF PROCEDURE Fluoroscopically guided, contrast-controlled bilateral L4/5, L5/S1 facet joint injections. Following review of allergy and review of potential side effects and complications, including, but not necessarily limited to, infection, allergic reaction, local tissue breakdown, stroke, temporary or permanent nerve injury, paralysis, and possible , the patient indicated that the patient understood and agreed to proceed. An informed consent document was signed by the patient, witnessed by a nurse, and placed in the patient's chart. Additionally, other treatment options including medications, modalities, and physical therapy were reviewed with the patient. After review of previous anaesthesic history and IV conscious sedation the patient was deemed safe to proceed with today?s procedure with IV conscious sedation as ASA class II designation. Safety time-out was performed to confirm patient ID, procedure to be performed and site of procedure. IV sedation was accomplished with a combination of 3mg of Versed and 50mcg of Fentanyl was administered by the RN after DO order, titrated to patient comfort during the course of the procedure while the patient remained responsive to all verbal commands In the prone position, following sterile prep and drape of the lumbar region, the posterior aspect of the L4/5, L5/S1 facet joints were identified fluoroscopically. The skin was anesthetized via a 25-gauge 1.5inch needle with 1% lidocaine solution into the corresponding facet joints. At this point, a 22- gauge 3.5-inch spinal needle was atraumatically introduced and advanced under fluoroscopic guidance into the corresponding facet joints. Following negative aspiration, injections of approximately 0.2cc of Isovue 200 confirmed int erarticular placement without vascular uptake. The identical procedure was then performed at the L4/5, L5/S1 facet joints on the left. Radiological data, including multiple fluoroscopic views of the lumbosacral spine, reveal a spinal needle at the L4/5, L5/S1 facet joints bilaterally. Subsequent views show flow of contrast material both superiorly and inferiorly within the joint space without vascular or intrathecal uptake. At this point, a total of 0.5cc including a mixture of 0.25cc Marcaine and 0.25cc betamethasone was injected without complication into each of the corresponding facet joints. The patient tolerated the procedure well without signs or symptoms of complications prior to transfer to the recovery area continued monitoring without incident. The patient was then transferred to the recovery area where they were observed for an appropriate period of time after the injection. The patient reported a VAS score of 7 prior to the procedure and a post- procedure VAS of 0. POST OP INSTRUCTIONS The patient was provided a Pain Log to continue to record their response to the target-specific procedure prior to follow-up visit with their referring physician. Additionally, specific post-injection care instructions and a contact number to our office were provided if concerns arise regarding possible complications associated with the procedure are suspected.
== END 2021-01-18 14:46 | disposition home or self-care (01) ==
LOC: RAD 13:43
PROVIDERS: PCP Student in an Organized Health Care Education/Training Program; Referring Provider Physical Medicine & Rehabilitation; Visit Provider Physical Medicine & Rehabilitation
DX: M47.816 Spondylosis without myelopathy or radiculopathy, lumbar region (principal); M51.36 Other intervertebral disc degeneration, lumbar region
CPT/HCPCS: 64493; 64494; 99152; J0702; J2250; J3010

== ENCOUNTER → 2021-04-16 10:54 | Outpatient (CLI) | payer MEDICARE, SELFPAY ==
[2021-04-16 15:28] LABS: COVID19 -Nasal RAPID Negative (Negative)
== END ==
PROVIDERS: PCP Student in an Organized Health Care Education/Training Program; Referring Provider Physical Medicine & Rehabilitation; Visit Provider Physical Medicine & Rehabilitation
DX: Z20.822 Contact with and (suspected) exposure to COVID-19 (principal)
CPT/HCPCS: 87635; C9803

== ENCOUNTER 2021-04-17 12:57 | Outpatient (CLI) | payer MEDICARE, SELFPAY ==
[2021-04-17] VITALS (7 sets, daily range): BP systolic 105–136; BP diastolic 52–81; PULSE 74–82; RESP 10–23; TEMP 36.4; O2SAT 95–99
--- NOTE | 2021-04-17 12:59 | DI.RAD.S_ITS ---
PROCEDURE: PAIN L INTERLAMINAR/CAUDAL INJ INDICATIONS: SPONDYLOSIS COMPARISON: None. FINDINGS: Fluoroscopic spot filming was performed to verify placement of spinal needles at the L4-5 level(s), as labeled on the films. Appropriate location(s) of the needle tip(s) was confirmed by injection of iodinated contrast. IMPRESSION: Fluoro guidance was provided intraoperatively for translaminar epidural steroid injection at L4-5 level. Dictated by: Scott Stanford M.D. on 04/17/2021 at 16:14 Approved by: Scott Stanford M.D. on 04/17/2021 at 16:19
[2021-04-17] MEDS: fentaNYL 100 MCG/2 ML INJ 50 MCG IV (13:45)
[2021-04-17] MEDS: MIDAZOLAM 5 MG/5 ML VIAL IV (13:45)
[2021-04-17] MEDS: BUPIVACAINE 0.25% (PF) VIAL 2 ML INJ (13:50)
[2021-04-17] MEDS: IOPAMIDOL 15 ML VIAL 3 ML INJ (13:51)
[2021-04-17] MEDS: BETAMETHASONE 30 MG/5 ML MDV 6 MG INJ (13:51)
[2021-04-17] MEDS: DEXAMETHASONE 10 MG/ML VIAL 20 MG INJ (13:51)
--- NOTE | 2021-04-17 14:03 | P.PCN_ITS ---
Date/Time/Diagnoses Date of procedure: 04/17/21 Time of procedure: 14:03 Pre-procedure diagnosis: 1. HNP WITH RADICULAR FEATURES, 2. MULTILEVEL CENTRAL STENOSIS, Post-procedure diagnosis: same Procedure Notes Procedure: 1. FLUOROSCOPICALLY GUIDED CONTRAST CONTROLLED INTERLAMINAR EPIDURAL STEROID INJECTION -L4/5 Indications: Mere is referred by Dr. Gutiérrez for treatment of Bilateral Foraminal Stenosis R>L LE symptoms. Physician: Cristino Horn Total Fluoroscopy time (seconds): 13 Total sedation minutes: 12 Complications: none Procedure in detail & Post-procedure care: FINDINGS Multilevel Central Spinal Stenosis with Nerve Root Compression DESCRIPTION OF PROCEDURE Fluoroscopically guided, contrast-controlled L4/5 translaminar epidural steroid injection. Following review of allergy and review of potential side effects and complications, including, but not necessarily limited to, infection, allergic reaction, local tissue breakdown, temporary as well as permanent nerve injury, paralysis, stroke and possible , the patient indicated that the patient understood and agreed to proceed. An informed consent document was signed by the patient, witnessed by a nurse, and placed in the patient's chart. Additionally, other treatment options including modalities, medications, and physical therapy were reviewed with the patient. After review of previous anaesthesic history and IV conscious sedation the patient was deemed safe to proceed with today?s procedure with IV conscious sedation as ASA class II designation. Safety time-out was performed to confirm patient ID, procedure to be performed and site of procedure. IV sedation was accomplished with a combination of 2mg of Versed and 50mcg of Fentanyl was administered by the RN after DO order, titrated to patient comfort during the course of the procedure while the patient remained responsive to all verbal commands In the prone position, following sterile prep and drape of the lumbar region, the L4/5 translaminar space was identified fluoroscopically. The skin was anesthetized via a 25-gauge, 1.5inch needle with 1% lidocaine solution. At this point, a 22-gauge short bevel spinal needle was atraumatically introduced and advanced under fluoroscopic guidance into the region of the L4/5 translaminar space. Depth was confirmed on lateral view. Radiological data, including multiple fluoroscopic views of the lumbar spine, reveal a spinal needle at the L4/5 translaminar space. Lateral views then show placement of the needle in the epidural space. Subsequent views show contrast material flowing superiorly and inferiorly in the epidural space. No vascular or intrathecal uptake is observed. At this point, using loss of resistance technique with saline and air, the epidural space was entered. This was confirmed following negative aspiration with injection of approximately 1.5cc of Isovue 200, showing excellent epidural flow without vascular or intrathecal uptake. At this point, 1cc of 1% lidocaine solution combined with 3cc or 20mg of dexamethasone and 6mg betamethasone was injected without incident. The patient tolerated the procedure well without signs or symptoms of compli cations prior to transfer to the recovery area continued monitoring without incident. The patient was then transferred to the recovery area where they were observed for an appropriate period of time after the injection. The patient reported a VAS score of 6 prior to the procedure and a post- procedure VAS of 0. POST OP INSTRUCTIONS The patient was provided a Pain Log to continue to record their response to the target-specific procedure prior to follow-up visit with their referring physician. Additionally, specific post-injection care instructions and a contact number to our office were provided if concerns arise regarding possible complications associated with the procedure are suspected.
== END 2021-04-17 14:20 | disposition home or self-care (01) ==
LOC: RAD 12:59
PROVIDERS: PCP Student in an Organized Health Care Education/Training Program; Referring Provider Physical Medicine & Rehabilitation; Visit Provider Physical Medicine & Rehabilitation
DX: M51.16 Intervertebral disc disorders with radiculopathy, lumbar region (principal); M48.061 Spinal stenosis, lumbar region without neurogenic claudication
CPT/HCPCS: 62323; 99152; J0702; J1100; J2250; J3010

== ENCOUNTER → 2021-06-01 14:22 | Outpatient (CLI) | payer MEDICARE, SELFPAY ==
--- NOTE | 2021-06-01 14:23 | DI.MG.S_ITS ---
BILATERAL DIGITAL SCREENING MAMMOGRAM 3D/2D WITH CAD: 06/01/2021 CLINICAL: Routine screening. Comparison is made to exams dated: 10/16/2019 mammogram - [facility], 08/21/2016 mammogram, and 04/26/2014 mammogram - [facility]. There are scattered fibroglandular elements in both breasts. Current study was also evaluated with a Computer Aided Detection (CAD) system. No significant masses, calcifications, or other findings are seen in either breast. There has been no significant interval change. IMPRESSION: NEGATIVE There is no mammographic evidence of malignancy. A 1 year screening mammogram is recommended. This exam was interpreted at Station ID: [id number]. NOTE: For mammograms, a report in lay terms will be sent to the patient. Approximately 15% of breast malignancies will not be visualized mammographically. In the management of a palpable breast mass, a negative mammogram must not discourage biopsy of a clinically suspicious lesion. Electronically Signed By: Sherwin vinson/andrew:06/01/2021 15:57:45 letter sent: Normal Exam ACR BI-RADS Category 1: Negative 3341F
== END ==
PROVIDERS: PCP Student in an Organized Health Care Education/Training Program; Referring Provider Student in an Organized Health Care Education/Training Program; Visit Provider Student in an Organized Health Care Education/Training Program
DX: Z12.31 Encounter for screening mammogram for malignant neoplasm of breast (principal)
CPT/HCPCS: 77063; 77067

== ENCOUNTER → 2021-06-12 12:34 | Outpatient (CLI) | payer MEDICARE, SELFPAY ==
--- NOTE | 2021-06-12 12:37 | DI.RAD.S_ITS ---
PROCEDURE: XR DEXA AXIAL SKELETON INDICATIONS: osteoporosis screening COMPARISON: None. FINDINGS: This blank DEXA report has been sent in error by the PACS system. The correct and complete report will be forthcoming in 1-2 days. Thank you for your patience and understanding. Dictated by: Gretel Leslie MD, PhD on 06/12/2021 at 13:41 Approved by: Gretel Leslie MD, PhD on 06/12/2021 at 13:41
== END ==
PROVIDERS: PCP Student in an Organized Health Care Education/Training Program; Referring Provider Student in an Organized Health Care Education/Training Program; Visit Provider Student in an Organized Health Care Education/Training Program
DX: Z13.820 Encounter for screening for osteoporosis (principal); Z78.0 Asymptomatic menopausal state
CPT/HCPCS: 77080

== ENCOUNTER → 2021-06-19 09:47 | Outpatient (CLI) | payer MEDICARE, SELFPAY ==
[2021-06-19 13:41] LABS: COVID19 -Nasal RAPID Negative (Negative)
== END ==
PROVIDERS: PCP Student in an Organized Health Care Education/Training Program; Visit Provider Physical Medicine & Rehabilitation
DX: Z20.822 Contact with and (suspected) exposure to COVID-19 (principal)
CPT/HCPCS: 87635; C9803

== ENCOUNTER 2021-06-21 13:34 | Outpatient (CLI) | payer MEDICARE, SELFPAY ==
[2021-06-21] VITALS (8 sets, daily range): BP systolic 116–140; BP diastolic 58–63; PULSE 72–78; RESP 11–26; TEMP 36.1–36.6; O2SAT 96–100
--- NOTE | 2021-06-21 13:37 | DI.RAD.S_ITS ---
PROCEDURE: PAIN L/S FACET INJ/BLK 1ST ALONZO COMPARISON: [facility], , PAIN L/S FACET INJ/BLK 1ST ALONZO, 01/18/2021, 14:23. INDICATIONS: SPONDYLOSIS FINDINGS: Fluoroscopic spot filming was performed to verify placement of spinal needles on both sides at the L4, L5, and S1 levels, as labeled on the films. Appropriate location of the needle tips was confirmed by injection of iodinated contrast. IMPRESSION: Intraprocedural examination within normal limits. Dictated by: Campos Franco M.D. on 06/21/2021 at 13:49 Approved by: Campos Franco M.D. on 06/21/2021 at 13:51
[2021-06-21] MEDS: fentaNYL 100 MCG/2 ML INJ 50 MCG IV (14:21)
[2021-06-21] MEDS: MIDAZOLAM 5 MG/5 ML VIAL IV (14:21)
[2021-06-21] MEDS: BUPIVACAINE 0.5% (PF) VIAL 5 ML INJ (14:22)
[2021-06-21] MEDS: LIDOCAINE 1% 20 ML 10 ML INJ (14:22)
[2021-06-21] MEDS: IOPAMIDOL 15 ML VIAL 3 ML INJ (14:22)
--- NOTE | 2021-06-21 14:38 | P.PCN_ITS ---
Date/Time/Diagnoses Date of procedure: 06/21/21 Time of procedure: 14:39 Pre-procedure diagnosis: 1. FACET ARTHROPATHY Post-procedure diagnosis: same Procedure Notes Procedure: 1. BILATERAL- L4, L5 and S1 DIAGNOSTIC MB BLOCKS with LA Anesthetic Indications: Mere is referred by Dr. Gutiérrez for treatment of Bilateral Axial LBP. Physician: Cristino Horn Total Fluoroscopy time (seconds): 10 Total sedation minutes: 12 Complications: none Procedure in detail & Post-procedure care: DESCRIPTION OF PROCEDURE Fluoroscopically guided, contrast-controlled bilateral L4, L5 and S1 medial branch blocks with 0.5cc of 0.5% Marcaine. Following review of allergy and review of potential side effects and complications, including, but not necessarily limited to, infection, allergic reaction, local tissue breakdown, nerve injury, paralysis, stroke and possible , the patient indicated that the patient understood and agreed to proceed. An informed consent document was signed by the patient, witnessed by a nurse, and placed in the patient's chart. After review of previous anaesthesic history and IV conscious sedation the patient was deemed safe to proceed with today's procedure with IV conscious sedation as ASA class II designation. Safety time-out was performed to confirm patient ID, procedure to be performed and site of procedure. IV sedation was accomplished with a combination of 2mg of Versed and 50mcg of Fentanyl was administered by the RN after DO order, titrated to patient comfort during the course of the procedure while the patient remained responsive to all verbal commands In the prone position, following sterile prep and drape of the lumbar region, the right L4, L5 and S1 anatomical location of the medial branch of the dorsal ramus was identified fluoroscopically. Subsequently an anesthetic skin wheal using 1% lidocaine solution was initiated at each of the anatomical spots. Subsequently then a 22-gauge 3.5-inch spinal needle was atraumatically introduced and advanced under fluoroscopic guidance at each of the corresponding sites at the right L4, L5 and S1 MB. After negative aspiration, 0.2cc of Isovue 200 was injected, confirming placement without vascular or intrathecal uptake. Subsequently then 0.5cc of 0.5% Marcaine solution was injected at each of the corresponding sites at the right L4, L5 and S1 medial branch locations. The identical procedure was replicated on the left. The patient tolerated the procedure well without signs or symptoms of complications prior to transfer to the recovery area continued monitoring without incident. Post-procedure, the patient was monitored initiating provocative activities to measure the amount of relief from block of the facetogenic pain. The patient reported a VAS of 7 prior to the procedure and a post-procedure VAS of 1. It has been a pleasure to assist in the diagnostic and therapeutic care of your patient. POST OP INSTRUCTIONS The patient was provided with a Pain Log to complete over the next several hours and subsequent days prior to the patient's follow up with the ordering physician. If the patient has corporate health consultant relief to the solution applied, then they may be a candidate for medial branch rhizotomy. The patient is aware, was provided, once again, with a Pain Log and will follow up with the referring physician for review and clinical correlation
== END 2021-06-21 14:55 | disposition home or self-care (01) ==
LOC: RAD 13:36
PROVIDERS: PCP Student in an Organized Health Care Education/Training Program; Referring Provider Physical Medicine & Rehabilitation; Visit Provider Physical Medicine & Rehabilitation
DX: M47.816 Spondylosis without myelopathy or radiculopathy, lumbar region (principal); M47.817 Spondylosis without myelopathy or radiculopathy, lumbosacral region; M54.5 Low back pain
CPT/HCPCS: 64493; 64494; 99152; J2250; J3010

== ENCOUNTER → 2021-07-02 09:05 | Outpatient (CLI) | payer MEDICARE, SELFPAY ==
[2021-07-02 12:05] LABS: COVID19 -Nasal RAPID Negative (Negative)
== END ==
PROVIDERS: PCP Student in an Organized Health Care Education/Training Program; Visit Provider Nurse Practitioner Family
DX: Z01.812 Encounter for preprocedural laboratory examination (principal); Z20.822 Contact with and (suspected) exposure to COVID-19
CPT/HCPCS: 87635; C9803

== ENCOUNTER 2021-07-03 08:22 | Day surgery (SDC) | payer MEDICARE, SELFPAY ==
[2021-07-03 09:35] VITALS: BP 136/81; PULSE 78; RESP 20; TEMP 36.4; O2SAT 98; BMI 36.1
[2021-07-03] MEDS: PROPARACAINE 0.5% OPHTH SOL 2 DROPS EYE-OP (09:39)
[2021-07-03] MEDS: CATARACT EYE COMPOUND (10 DROPS/SYRINGE) 3 DROPS EYE-OP (09:39)
--- NOTE | 2021-07-03 10:07 | PM.PREOP ---
Pre-operative Note Interval Note History & Physical reviewed/Exam performed by Physician: Yes Changes to H&P: No
--- NOTE | 2021-07-03 10:07 | PM.OP.1 ---
Operative Date/Time/Diagnoses Pre-op diagnosis: Nuclear Cataract Left eye Post-op diagnosis: same Procedure & Clinicians Same procedure as scheduled: Yes Surgeon: Marek Hodge Anesthesia Type: MAC +/- and Sedation Operative Notes Procedure in detail: Patient brought to the operating suite. Tetracaine drops placed in the left eye. Patient was prepped and draped in sterile manner. Wire lid speculum was placed in the eye. Betadine drops were placed on the eye. This was irrigated. Lidocaine jelly was placed on the eye. A paracentesis port was created with a side-port blade. 0.1 mL 1% preservative free lidocaine was injected into the anterior chamber. The anterior chamber was deepened with viscoelastic. 2.6 mm keratome was used to create a temporal clear corneal incision. Cystotome and Utrata forceps were used to create continuous tear capsulorrhexis. Balanced salt solution was used to hydro dissect the nucleus. The phacoemulsification handpiece was inserted and the nucleus was removed using the stop and chop technique. The irrigation aspiration handpiece was inserted and the remaining cortex was removed. Anterior chamber was deepened with viscoelastic. An Forbes DIB00 intraocular lens with a power of 24.5 was injected into the capsular bag. Irrigation aspiration handpiece was inserted and the remaining viscoelastic was removed. Incision was hydrated with balanced salt solution and found to be leak free with pressure with Weck-Delia sponges. 0.1 mL Vigamox injected anterior chamber. 0.3 mL Kenalog 10 mg was injected subconjunctivally. Lid speculum was removed. The patient left the operating room in excellent condition. Complications: none Post-operative Condition: stable Disposition: same day surgery
[2021-07-03] MEDS: LIDOCAINE 2% (GLYDO) 6 ML GEL TOP (10:31)
[2021-07-03] MEDS: HYALURONATE SODIUM 30 MG-10 MG/ML SYRINGES 1 BOX INTRAOCULA (10:31)
[2021-07-03] MEDS: TRIAMCINOLONE 50 MG/5 ML VIAL INJ (10:32)
[2021-07-03] MEDS: MOXIFLOXACIN INJ 4 MG/0.8 ML VIAL 0.5 MG EYE-OP (10:32)
[2021-07-03] MEDS: TETRACAINE 0.5% OPHTH DROPS 4 ML 2 DROPS EYE-OP (10:32)
[2021-07-03] MEDS: PHENYLEPHRINE/LIDOCAINE VIAL (OR) 0.2 ML EYE-OP (10:32)
[2021-07-03] MEDS: BALANCED SALT IRRIG SOLN NO.2 500 ML, EPINEPHrine 1 MG IRR (10:33)
[2021-07-03 10:52] VITALS: BP 144/71; PULSE 72; RESP 16; TEMP 36.9; O2SAT 100
== END 2021-07-03 11:01 | disposition home or self-care (01) ==
PROVIDERS: PCP Student in an Organized Health Care Education/Training Program; Referring Provider Ophthalmology; Visit Provider Ophthalmology
PROC: (CPT 66984; principal; 2021-07-03 10:15)
DX: H25.12 Age-related nuclear cataract, left eye (principal); K21.9 Gastro-esophageal reflux disease without esophagitis; E03.9 Hypothyroidism, unspecified; E66.9 Obesity, unspecified; Z68.36 Body mass index [BMI] 36.0-36.9, adult
CPT/HCPCS: 66984; J0171; J2250; J3301

== ENCOUNTER → 2021-07-16 08:59 | Outpatient (CLI) | payer MEDICARE, SELFPAY ==
[2021-07-16 13:40] LABS: COVID19 -Nasal RAPID Negative (Negative)
== END ==
PROVIDERS: PCP Student in an Organized Health Care Education/Training Program; Visit Provider Nurse Practitioner Family
DX: Z20.822 Contact with and (suspected) exposure to COVID-19 (principal); Z01.812 Encounter for preprocedural laboratory examination
CPT/HCPCS: 87635; C9803

== ENCOUNTER 2021-07-17 08:56 | Day surgery (SDC) | payer MEDICARE, SELFPAY ==
[2021-07-17 09:34] VITALS: BP 139/77; PULSE 75; RESP 16; TEMP 36.2; O2SAT 98; BMI 36.1
[2021-07-17] MEDS: CATARACT EYE COMPOUND (10 DROPS/SYRINGE) 3 DROPS EYE-OP (09:40)
[2021-07-17] MEDS: PROPARACAINE 0.5% OPHTH SOL 2 DROPS EYE-OP (09:40)
--- NOTE | 2021-07-17 10:31 | PM.PREOP ---
Pre-operative Note Interval Note History & Physical reviewed/Exam performed by Physician: Yes Changes to H&P: No
--- NOTE | 2021-07-17 10:31 | PM.OP.1 ---
Operative Date/Time/Diagnoses Pre-op diagnosis: Nuclear cataract right eye Procedure & Clinicians Procedure: Cataract Surgery Same procedure as scheduled: Yes Surgeon: Marek Hodge Anesthesia Type: MAC +/- and Sedation Operative Notes Procedure in detail: Patient brought to the operating suite. Tetracaine drops placed in the right eye. Patient was prepped and draped in sterile manner. Wire lid speculum was placed in the eye. Betadine drops were placed on the eye. This was irrigated. Lidocaine jelly was placed on the eye. A paracentesis port was created with a side-port blade. 0.1 mL 1% preservative free lidocaine was injected into the anterior chamber. The anterior chamber was deepened with viscoelastic. 2.6 mm keratome was used to create a temporal clear corneal incision. Cystotome and Utrata forceps were used to create continuous tear capsulorrhexis. Balanced salt solution was used to hydro dissect the nucleus. The phacoemulsification handpiece was inserted and the nucleus was removed using the stop and chop technique. The irrigation aspiration handpiece was inserted and the remaining cortex was removed. Anterior chamber was deepened with viscoelastic. An Forbes DIB00 intraocular lens with a power of 24.5 was injected into the capsular bag. Irrigation aspiration handpiece was inserted and the remaining viscoelastic was removed. Incision was hydrated with balanced salt solution and found to be leak free with pressure with Weck-Delia sponges. 0.1 mL Vigamox injected anterior chamber. 0.3 mL Kenalog 10 mg was injected subconjunctivally. Lid speculum was removed. The patient left the operating room in excellent condition. Complications: none Post-operative Condition: stable Disposition: same day surgery
[2021-07-17] MEDS: LIDOCAINE 2% (GLYDO) 6 ML GEL TOP (10:54)
[2021-07-17] MEDS: MOXIFLOXACIN INJ 4 MG/0.8 ML VIAL 0.5 MG EYE-OP (10:54)
[2021-07-17] MEDS: HYALURONATE SODIUM 30 MG-10 MG/ML SYRINGES 1 BOX INTRAOCULA (10:54)
[2021-07-17] MEDS: TETRACAINE 0.5% OPHTH DROPS 4 ML 2 DROPS EYE-OP (10:55)
[2021-07-17] MEDS: PHENYLEPHRINE/LIDOCAINE VIAL (OR) 0.2 ML EYE-OP (10:55)
[2021-07-17] MEDS: BALANCED SALT IRRIG SOLN NO.2 500 ML, EPINEPHrine 1 MG IRR (10:55)
[2021-07-17] MEDS: TRIAMCINOLONE 50 MG/5 ML VIAL INJ (10:55)
[2021-07-17 11:30] VITALS: BP 143/79; PULSE 70; RESP 16; TEMP 36; O2SAT 98
== END 2021-07-17 11:32 | disposition home or self-care (01) ==
PROVIDERS: PCP Student in an Organized Health Care Education/Training Program; Referring Provider Ophthalmology; Visit Provider Ophthalmology
PROC: (CPT 66984; principal; 2021-07-17 10:45)
DX: H25.11 Age-related nuclear cataract, right eye (principal); R51.9 Headache, unspecified
CPT/HCPCS: 66984; J0171; J2250; J3010; J3301

== ENCOUNTER 2021-07-22 10:43 | Emergency (ER) | payer MEDICARE, SELFPAY ==
[2021-07-22 10:55] VITALS: BP 133/58; PULSE 90; RESP 18; TEMP 36.2; O2SAT 99; BMI 37.8
--- NOTE | 2021-07-22 11:12 | ED.DIZZY ---
HPI - Dizziness General Chief Complaint: Dizziness Stated Complaint: dizzy, possibly from sinus issues or heart murmur Time Seen by Provider: 07/22/21 10:46 Source: patient Mode of arrival: Ambulatory Limitations: no limitations History of Present Illness HPI Narrative: Patient is a 70-year-old female who presents with dizziness ongoing for 1 and half weeks. It is definitely worse with ambulation. She says she does not notice it too much with turning her head but when she stands and walks she is dizzy. She has no numbness tingling or weakness. She denies any visual changes. Her family is concerned because it is not getting any better. Nursing staff notes that on her way to the room she is quite short of breath distant. She is noted to have lower extremity edema but she says it is not any worse than normal. She has not had any cough or congestion. She has no chest pain or palpitations. No recent travel no prior history of blood clots. Related Data Home Medications Medication Instructions Recorded Confirmed levothyroxine 100 mcg capsule 100 mcg PO DAILY 07/05/20 07/17/21 rosuvastatin 5 mg tablet 5 mg PO DAILY 07/05/20 07/17/21 cetirizine 10 mg capsule (All Day 10 mg PO DAILY 01/03/21 07/17/21 Allergy (cetirizine)) Singulair 07/16/21 ipratropium bromide 42 mcg (0.06 2 spray INTRANASAL TID PRN 07/16/21 07/16/21 %) nasal spray Previous Rx's Medication Instructions Recorded meclizine 25 mg tablet 25 mg PO TID PRN #10 tab 07/22/21 Allergies Allergy/AdvReac Type Severity Reaction Status Date / Time Penicillins Allergy Verified 07/17/21 09:32 Review of Systems Review of Systems Narrative: GENERAL: Denies chills, fatigue, malaise, fever, sweats, travel HEENT: Denies sinus pain, ear pain, sore throat, difficulty swallowing, neck pain RESPIRATORY: Denies dyspnea, cough, wheezing, hemoptysis, sputum. CARDIOVASCULAR: Denies chest pain, palpitations, orthopnea, edema GASTROINTESTINAL: Denies nausea, vomiting, abdominal pain, diarrhea, constipation, melena. : Denies dysuria, frequency, incontinence, hematuria, urinary retention, flank pain. MUSCULOSKELETAL: Denies weakness, joint pain, or bony pain SKIN: No rash, no erythema, no pruritus NEUROLOGIC see HPI PSYCHIATRIC: No concerning psychosocial issues. 12 point review of systems is negative except for those stated above and HPI Patient History Medical History Chicken pox Chronic back pain (~2015) Facet arthropathy, lumbar Heart murmur Heart valve problem Herniated nucleus pulposus, lumbar History of sinus problem Measles Mumps Surgical History Anesthesia History of total knee arthroplasty (~10/2019) Total knee replacement status Family History Father COPD (chronic obstructive pulmonary disease) Mother Heart disease Grandfather Heart attack Heart disease Grandmother Stroke Heart disease Sister Diabetes mellitus Grandmother Heart disease Social History (Updated 10/26/18 @ 20:18 by Kizzy Cavazos DO) household members: none Smoking Status: Never smoker alcohol intake: current substance use type: does not use Smoking Status: Never smoker Substance Use Type: does not use Exam Initial Vital Signs Initial Vital Signs: Vital Signs Temperature 97.2 F L 07/22/21 10:55 Pulse Rate 90 07/22/21 10:55 Respiratory Rate 18 07/22/21 10:55 Blood Pressure 133/58 L 07/22/21 10:55 Pulse Oximetry 99 07/22/21 10:55 GENERAL: Alert pleasant 70-year-old femaleand in no acute distress. HEENT: Head atraumatic,EOMI, pupils reactive, face symmetric, moist mucous membranes CARDIOVASCULAR: Regular rate and rhythm without murmurs, rubs or gallops. RESPIRATORY: Breath sounds equal bilaterally, no wheezes rales or rhonchi. ABDOMEN: Soft, nontender. Normoactive bowel sounds all 4 quadrants. No guarding or rebound. EXTREMITIES: Normal range of motion, no clubbing. +3 pitting edema lower extremities Neurovascularly intact NEUROLOGICAL: Alert and oriented x4.Normal gait and speech. Cranial nerves II through XII grossly intact. Good [id number], good [id number], strength equal bilaterally, no dysarthria or aphasia, sensation in tact to soft touch bilaterally, no visual changes, no facial droop SKIN: Warm, dry, no laceration, no petechiae, no rashes or lesions. Scores NIH Stroke Scale Level of Conciousness: Alert, keenly responsive Ask month/age: Answers both questions correctly. Open/close eyes, close hand: Performs both tasks correctly Best gaze horizontal: Normal Visual pratt: No visual loss Facial palsy: Normal symetrical movement Left arm drift: No drift for full 10 sec Right arm drift: No drift for full 10 sec Left leg drift: No drift for full 5 sec Right leg drift: No drift for full 5 sec Limb ataxia: Absent Sensory on face/arms/legs: Normal, no sensory loss Best language: No aphasia, normal Dysarthria: Normal Extinction or inattention: No abnormality Total NIH Stroke scale score: 0 Course Orders Ordered: ED Orders 07/22/21 10:51 EKG-12 Lead Routine 07/22/21 11:05 COVID19 -Nasal swab/Pre-Proc Stat 07/22/21 11:13 CT angio head and neck Stat 07/22/21 11:32 Complete Blood Count AUTO DIFF Stat Comprehensive Metabolic Panel Stat D Dimer Stat NT-proBNP (BNP-Adult 18+) Stat Partial Thromboplastin Time Stat Prothrombin Time INR Stat Troponin & CK Cardiac Panel Stat Discontinued Medications Meclizine HCl (Meclizine Hcl 12.5 Mg Tablet) 25 mg PO NOW ONE Stop: 07/22/21 12:25 Last Admin: 07/22/21 12:31 Dose: 25 mg Documented by: PRUDENCE Vital Signs Vital signs: Vital Signs - 8 hr 07/22/21 13:06 07/22/21 13:07 07/22/21 13:39 Pulse Rate 77 73 86 Respiratory Rate 37 H 31 H 18 Blood Pressure 138/69 Pulse Oximetry 99 99 07/22/21 13:52 Pulse Rate Respiratory Rate Blood Pressure 133/79 Pulse Oximetry MDM - Dizziness Lab Data Result diagrams: 07/22/21 11:32 07/22/21 11:32 Labs: Lab Results 07/22/21 07/22/21 07/22/21 Range/Units 11:05 11:32 11:32 WBC 7.0 (4.5-11.0) X10^3/uL RBC 4.23 (4.0-5.2) X10^6/uL Hgb 13.1 (12.0-16.0) g/dL Hct 39.3 (36-46) % MCV 92.8 (80-100) fL MCH 30.9 (26-34) PG MCHC 33.3 (30-36) % RDW 14.3 (11.6-14.8) % Plt Count 209 (150-400) X10^3/uL Neut % (Auto) 65.1 (50-75) % Lymph % (Auto) 20.3 L (25-40) % [place] % (Auto) 12.5 (3-14) % Eos % (Auto) 1.5 L (2-4) % Baso % (Auto) 0.6 (0-2) % Neut # (Auto) 4500 (4867-2681) /uL Lymph # (Auto) 1400 (9151-9636) /uL [place] # (Auto) 900 (0-900) /uL Eos # (Auto) 100 (0-450) /uL Baso # (Auto) 0 (0-100) /uL PT 11.0 (10.1-12.7) SECONDS INR 1.0 (0.9-1.3) APTT 33 (26.4-36.2) SECONDS D-Dimer 299 H (<230) ng/mL Sodium (137-145) mmol/L Potassium (3.4-5.1) mmol/L Chloride (98-107) mmol/L Carbon Dioxide (22-32) mmol/L BUN (7-17) mg/dL Creatinine (0.52-1.04) mg/dL Estimated GFR (>60) mL/min BUN/Creatinine Ratio (6-22) Glucose (80-110) mg/dL Calcium (8.4-10.2) mg/dL Total Bilirubin (0.2-1.3) mg/dL AST (14-36) IU/L ALT (<35) IU/L Alkaline Phosphatase (38-126) U/L Total Creatine Kinase (30-135) U/L CK-MB (CK-2) CK-MB (CK-2) Rel Index Troponin I (0.01-0.034) ng/mL NT-Pro-B Natriuret Pep (<125) pg/mL Total Protein (6.3-8.2) g/dL Albumin (3.5-5.0) g/dL Globulin (1.7-4.1) g/dL Albumin/Globulin Ratio (1.0-2.8) SARS-CoV-2 (PCR) Negative (Negative) 07/22/21 Range/Units 11:32 WBC (4.5-11.0) X10^3/uL RBC (4.0-5.2) X10^6/uL Hgb (12.0-16.0) g/dL Hct (36-46) % MCV (80-100) fL MCH (26-34) PG MCHC (30-36) % RDW (11.6-14.8) % Plt Count (150-400) X10^3/uL Neut % (Auto) (50-75) % Lymph % (Auto) (25-40) % [place] % (Auto) (3-14) % Eos % (Auto) (2-4) % Baso % (Auto) (0-2) % Neut # (Auto) (5253-9030) /uL Lymph # (Auto) (9208-5008) /uL [place] # (Auto) (0-900) /uL Eos # (Auto) (0-450) /uL Baso # (Auto) (0-100) /uL PT (10.1-12.7) SECONDS INR (0.9-1.3) APTT (26.4-36.2) SECONDS D-Dimer (<230) ng/mL Sodium 138 (137-145) mmol/L Potassium 4.4 (3.4-5.1) mmol/L Chloride 104 (98-107) mmol/L Carbon Dioxide 29 (22-32) mmol/L BUN 17 (7-17) mg/dL Creatinine 1.09 H (0.52-1.04) mg/dL Estimated GFR 49.3 L (>60) mL/min BUN/Creatinine Ratio 15.6 (6-22) Glucose 92 (80-110) mg/dL Calcium 9.5 (8.4-10.2) mg/dL Total Bilirubin 0.7 (0.2-1.3) mg/dL AST 23 (14-36) IU/L ALT 15 (<35) IU/L Alkaline Phosphatase 78 (38-126) U/L Total Creatine Kinase 38 (30-135) U/L CK-MB (CK-2) TNP CK-MB (CK-2) Rel Index TNP Troponin I < 0.012 (0.01-0.034) ng/mL NT-Pro-B Natriuret Pep 498 H (<125) pg/mL Total Protein 7.0 (6.3-8.2) g/dL Albumin 4.0 (3.5-5.0) g/dL Globulin 3.0 (1.7-4.1) g/dL Albumin/Globulin Ratio 1.3 (1.0-2.8) SARS-CoV-2 (PCR) (Negative) Urine Dip Bedside Urine Glucose Negative Bedside Urine Bilirubin - Negative Bedside Urine Ketone - Negative Urine Specific [place] 1.010 Bedside Urine Occult Blood - Negative Bedside Urine pH 6.0 Bedside Urine Protein - Negative Bedside Urine Urobilinogen - Negative Bedside Urine Nitrite - Negative Bedside Urine Leukocytes - Negative Esterase Imaging Data CTA - brain/neck: Radiologist's Impression: PROCEDURE:? CT ANGIO HEAD AND NECK ? INDICATIONS:? dizzy x 1 week ? TECHNIQUE:? Pre-contrast 4.5 mm thick sections acquired from the foramen magnum to the vertex.? After the administration of intravenous contrast, 1 mm thick sections acquired from the aortic arch through the [place] of [place].? Post-contrast 4.5 mm thick sections then re-acquired from the foramen magnum to the vertex.? ? COMPARISON:? None. ? FINDINGS: ? Noncontrast CT Brain: ? Cerebrum, cerebellum and brainstem:? Mild cerebral and cerebellar volume loss and multifocal white matter chronic ischemic change noted.? No evidence of intracranial hemorrhage, mass effect or extra-axial fluid collections.? No white matter disease. Means-white distinction is well preserved throughout the exam. Ventricles:? Appropriate size and position.? No evidence of hydrocephalus. Skull base:? The bony sella, pituitary gland and infundibulum are unremarkable.? Posterior fossa and cerebellum are unremarkable. Visualized portions of the external auditory canals and tympanic cavity are within normal limits. Calvarium and Scalp:? No scalp soft tissue swelling.? The underlying calvarium is intact without skull fracture or lytic lesion. Paranasal Sinuses:? Unremarkable as visualized.? No acute sinusitis. Mastoids:? Unremarkable as visualized.? No mastoid effusion. ? Cerebral CT Angiogram: ? Internal carotid arteries:? No acute findings.? Intracranial ICA are patent with no significant stenosis.? No occlusion.? No aneurysm.? Anterior cerebral arteries:? Unremarkable.? No significant stenosis.? No occlusion.? No aneurysm. Middle cerebral arteries:? Unremarkable.? No significant stenosis.? No occlusion.? No aneurysm. Posterior cerebral arteries:? Unremarkable.? No significant stenosis.? No occlusion.? No aneurysm. Basilar artery:? Unremarkable.? No significant stenosis.? No occlusion.? No aneurysm. Vertebral arteries:? Unremarkable.? No significant stenosis.? No dissection or occlusion. Dural venous sinuses:? Unremarkable given phase of enhancement. Other: Arterial phase brain parenchyma unremarkable. ? Neck CT Angiogram: ? Internal carotid arteries:? Mild proximal ICA calcification.? No significant stenosis.? No dissection or occlusion. Common carotid arteries:? Unremarkable.? No significant stenosis.? No dissection or occlusion. External carotid arteries:? Unremarkable.? No occlusion. Vertebral arteries:? Unremarkable.? No significant stenosis.? No dissection or occlusion. Aortic arch and mediastinum: Unremarkable. Other:? Arterial phase neck soft tissue within normal limits.? Both lung apices are clear.? Degenerative disc disease and arthropathy noted in the cervical spine. ? IMPRESSION: ? 1. No evidence of large vessel occlusion, aneurysm or vascular malformation. 2. Mild atrophy and chronic ischemic change without intracranial hemorrhage or mass effect 3. Mild atherosclerotic calcification in the proximal internal carotid arteries without stenosis. ? ? Any quantitative measurements of stenosis were performed using NASCET criteria.? Approved by: Marco Antonio Mccullough M.D. on 07/22/2021 at 11:57? ECG Data Interpretation: Normal sinus rhythm rate 86 VT interval 194 QRS [address] changes, no priors MDM Narrative Medical decision making narrative: Patient has been having dizziness worse with movement and position ongoing for about a week and half. She has no focal deficits. CT angio does not show any abnormality. Nursing initially noted some shortness of breath but she is not complaining of shortness of breath. Has minimal elevation of BNP without elevation of troponin no changes on her EKG. D-dimer is negative with age correction. She does have lower extremity edema that is stable for her. She is ambulatory in the ED without shortness of breath or deficits. Meclizine seemed to help her a lot. This is more likely vertigo. Discharge Plan Departure Patient Disposition: Home Clinical Impression: Vertigo Instructions: DI for Vertigo Activity Restrictions/Additional Instructions: *You have been diagnosed with vertigo *What to do: At this time blood work and CT scan are overall reassuring. Follow-up with your primary care provider *Continue to take medications as directed Meclizine 25 mg every 8 hours if needed for dizziness--> SENT TO [facility] *Follow up with your primary care provider in 2-3 days *Return to ER if you should have increasing dizziness, weakness, numbness, tingling, shortness of breath or any new, worsening or concerning symptoms Prescriptions: New meclizine 25 mg tablet 25 mg PO TID PRN (Reason: dizziness) Qty: 10 RF: 0 No Action All Day Allergy (cetirizine) 10 mg capsule 10 mg PO DAILY RF: 0 ipratropium bromide 42 mcg (0.06 %) spray,non-aerosol 2 spray INTRANASAL TID PRN (Reason: rhinorrhea) RF: 0 Singulair RF: 0 levothyroxine 100 mcg capsule 100 mcg PO DAILY RF: 0 rosuvastatin 5 mg tablet 5 mg PO DAILY RF: 0 Referrals: Ayden Gutiérrez MD [Primary Care Provider] -
--- NOTE | 2021-07-22 11:13 | DI.CT.S_ITS ---
PROCEDURE: CT ANGIO HEAD AND NECK INDICATIONS: dizzy x 1 week TECHNIQUE: Pre-contrast 4.5 mm thick sections acquired from the foramen magnum to the vertex. After the administration of intravenous contrast, 1 mm thick sections acquired from the aortic arch through the [place] of [place]. Post-contrast 4.5 mm thick sections then re-acquired from the foramen magnum to the vertex. COMPARISON: None. FINDINGS: Noncontrast CT Brain: Cerebrum, cerebellum and brainstem: Mild cerebral and cerebellar volume loss and multifocal white matter chronic ischemic change noted. No evidence of intracranial hemorrhage, mass effect or extra-axial fluid collections. No white matter disease. Means-white distinction is well preserved throughout the exam. Ventricles: Appropriate size and position. No evidence of hydrocephalus. Skull base: The bony sella, pituitary gland and infundibulum are unremarkable. Posterior fossa and cerebellum are unremarkable. Visualized portions of the external auditory canals and tympanic cavity are within normal limits. Calvarium and Scalp: No scalp soft tissue swelling. The underlying calvarium is intact without skull fracture or lytic lesion. Paranasal Sinuses: Unremarkable as visualized. No acute sinusitis. Mastoids: Unremarkable as visualized. No mastoid effusion. Cerebral CT Angiogram: Internal carotid arteries: No acute findings. Intracranial ICA are patent with no significant stenosis. No occlusion. No aneurysm. Anterior cerebral arteries: Unremarkable. No significant stenosis. No occlusion. No aneurysm. Middle cerebral arteries: Unremarkable. No significant stenosis. No occlusion. No aneurysm. Posterior cerebral arteries: Unremarkable. No significant stenosis. No occlusion. No aneurysm. Basilar artery: Unremarkable. No significant stenosis. No occlusion. No aneurysm. Vertebral arteries: Unremarkable. No significant stenosis. No dissection or occlusion. Dural venous sinuses: Unremarkable given phase of enhancement. Other: Arterial phase brain parenchyma unremarkable. Neck CT Angiogram: Internal carotid arteries: Mild proximal ICA calcification. No significant stenosis. No dissection or occlusion. Common carotid arteries: Unremarkable. No significant stenosis. No dissection or occlusion. External carotid arteries: Unremarkable. No occlusion. Vertebral arteries: Unremarkable. No significant stenosis. No dissection or occlusion. Aortic arch and mediastinum: Unremarkable. Other: Arterial phase neck soft tissue within normal limits. Both lung apices are clear. Degenerative disc disease and arthropathy noted in the cervical spine. IMPRESSION: 1. No evidence of large vessel occlusion, aneurysm or vascular malformation. 2. Mild atrophy and chronic ischemic change without intracranial hemorrhage or mass effect 3. Mild atherosclerotic calcification in the proximal internal carotid arteries without stenosis. Any quantitative measurements of stenosis were performed using NASCET criteria. Approved by: Marco Antonio Mccullough M.D. on 07/22/2021 at 11:57
[2021-07-22 11:25] LABS: COVID19 -Nasal RAPID Negative (Negative)
[2021-07-22 11:38] LABS: Add Manual Diff / Slide Review NO; Basophils Absolute Auto 0 /uL (0-100); Basophils Percent Auto 0.6 % (0-2); Eosinophils Absolute Auto 100 /uL (0-450); Eosinophils Percent Auto 1.5 % (2-4); Hematocrit 39.3 % (36-46); Hemoglobin 13.1 g/dL (12.0-16.0); Lymphocytes Absolute Auto 1400 /uL (1100-4500); Lymphocytes Percent Auto 20.3 % (25-40); Mean Corpuscular HGB Conc 33.3 % (30-36); Mean Corpuscular Hemoglobin 30.9 PG (26-34); Mean Corpuscular Volume 92.8 fL (80-100); Monocytes Absolute Auto 900 /uL (0-900); Monocytes Percent Auto 12.5 % (3-14); Neutrophils Absolute Auto 4500 /uL (1500-7000); Neutrophils Percent Auto 65.1 % (50-75); Platelet Count 209 X10^3/uL (150-400); Red Blood Cell Count 4.23 X10^6/uL (4.0-5.2); Red Cell Distribution Width 14.3 % (11.6-14.8)
[2021-07-22 11:44] LABS: PTT Partial Thromboplastin Tim 33 SECONDS (26.4-36.2)
[2021-07-22 11:48] LABS: D Dimer 299 ng/mL (<230)
[2021-07-22 11:52] LABS: Alanine Aminotransferase 15 IU/L (<35); Albumin Globulin Ratio 1.3 (1.0-2.8); Alkaline Phosphatase 78 U/L (38-126); Aspartate Aminotransferase 23 IU/L (14-36); BUN Creatinine Ratio 15.6 (6-22); Bilirubin Total 0.7 mg/dL (0.2-1.3); Blood Urea Nitrogen 17 mg/dL (7-17); Calcium 9.5 mg/dL (8.4-10.2); Carbon Dioxide 29 mmol/L (22-32); Chloride 104 mmol/L (98-107); Creatine Kinase 38 U/L (30-135); Estimated Glomerular Filt Rate 49.3 mL/min (>60); Glucose 92 mg/dL (80-110); HEMOLYSIS < 15 (0-50); Potassium 4.4 mmol/L (3.4-5.1); Sodium 138 mmol/L (137-145)
[2021-07-22 12:04] LABS: NT-proBNP (BNP-Adult 18+) 498 pg/mL (<125); Troponin I < 0.012 ng/mL (0.01-0.034)
[2021-07-22] MEDS: MECLIZINE HCL 12.5 MG TABLET 25 MG PO (12:31)
[2021-07-22 13:06] VITALS: PULSE 77; RESP 37
[2021-07-22 13:07] VITALS: BP 138/69; PULSE 73; RESP 31; O2SAT 99
[2021-07-22 13:39] VITALS: PULSE 86; RESP 18; O2SAT 99
[2021-07-22 13:52] VITALS: BP 133/79
== END 2021-07-22 13:52 | disposition home or self-care (01) ==
PROVIDERS: Emergency Provider Emergency Medicine; PCP Student in an Organized Health Care Education/Training Program
DX: R42 Dizziness and giddiness (principal); Z20.822 Contact with and (suspected) exposure to COVID-19
CPT/HCPCS: 36415; 70496; 70498; 80053; 81003; 82550; 83880; 84484; 85025; 85379; 85610; 85730; 87635; 93005; 99284; C9803; Q9967

== ENCOUNTER → 2021-08-15 13:33 | Outpatient (CLI) | payer MEDICARE, SELFPAY ==
--- NOTE | 2021-08-15 13:35 | DI.ECHO.S_ITS ---
[place] [facility]---------+ [facility] +---------+ : : [address] : : : : [id number] : : : : Phone: [phone] Echocardiogram Report + + :Name: ANNA ESTEVES Study Date: 08/15/2021 Height: 69 in : :[facility] ReadingLocation: Weight: 245 lb : : Gender: Female BSA: 2.3 m2 : :: 1950 Age: 71 yrs BP: 125/75 mmHg: :Reason For Study: AORTIC STENOSIS : :Ordering Physician: JOSELYN, : :KANDY Performed By: Radha Esposito : :Referring: KANDY ALVES : + + Interpretation Summary This is a limited echocardiogram focused solely on reassessment of the aortic valve stenosis. The left ventricle grossly appears normal in size and systolic function with the ejection fraction grossly estimated 60 to 65% without any obvious focal wall motion abnormality and grossly appears unchanged from the previous study. The aortic valve is trileaflet with moderate leaflet calcification and severely reduced leaflet mobility with moderate to severe aortic stenosis, slightly progressive since the previous study, now with a peak transvalvular velocity of 4.0 m/s and a mean gradient of 40 mmHg compared to 3.7 m/s and 33 mmHg, respectively, previously. 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 on the previous exam and the severity ratio has decreased only slightly from 0.32 down to 0.31. There is no aortic regurgitation. Procedure: A two-dimensional transthoracic echocardiogram with color flow and Doppler was performed in limited views only to assess aortic stenosis. The study quality was technically difficult. Comparison is made with the echocardiogram of 11/30/2020. The heart rate ranged between 80-87 bpm during the study. Left Ventricle: The left ventricle is normal in size and wall thickness. Left ventricular systolic function appears normal without focal wall motion abnormalities. The ejection fraction is estimated to be 60-65%. This is unchanged compared to the previous study. Atria: The left atrial size is normal. The right atrium is mildly dilated. Aortic Valve: The aortic valve is trileaflet. The aortic valve is moderately calcified. There is severely reduced leaflet mobility. The peak aortic velocity is 3.97 m/sec. The aortic valve mean gradient is 40 mmHg. The calculated aortic valve area is .97 cm2. No aortic regurgitation is present. Great Vessels: The aortic root is normal size. The dimensions of the ascending aorta are normal. Pericardium/ Pleura There is no pericardial effusion. There is no pleural effusion. MMode/2D Measurements & Calculations LVIDd: 4.3 cm LVOT diam: 2.0 cm LVIDs: 2.6 cm Ao root diam: 3.1 cm FS: 39.1 % asc Aorta Diam: 3.3 cm IVSd: 0.77 cm Ao Arch Diam (Prox Trans): 2.8 cm LVPWd: 0.90 cm LV howard. diameter/BSA (cm/m^2): 1.9 LV sys. diameter/BSA (cm/m^2): 1.2 LA A2 area: 22.2 cm2 RA long axis: 5.2 cm LA A4 area: 19.5 cm2 RA area: 24.2 cm2 LA length (vol): 5.5 cm RA vol: 95.2 ml LA vol: 67.1 ml RA : 42.3 ml/m2 LA vol index: 29.8 ml/m2 Doppler Measurements & Calculations Ao V2 max: 397.3 cm/sec LVOT Max Maciej: 127.1 cm/sec Ao V2 mean: 299.4 cm/sec LV V1 max P.5 mmHg Ao max P.1 mmHg LV V1 VTI: 27.2 cm Ao mean P.1 mmHg MAXI(I,D): 0.97 cm2 Ao V2 VTI: 87.8 cm MAXI(V,D): 1.0 cm2 sev ratio: 0.31 MAXI indexed to BSA (cm^2/m^2): 0.43 SV(LVOT): 85.4 ml Reading Physician:03:03 PM
== END ==
PROVIDERS: PCP Student in an Organized Health Care Education/Training Program; Referring Provider Student in an Organized Health Care Education/Training Program; Visit Provider Student in an Organized Health Care Education/Training Program
DX: I35.0 Nonrheumatic aortic (valve) stenosis (principal)
CPT/HCPCS: 93307

== ENCOUNTER → 2022-04-01 09:08 | Outpatient (CLI) | payer MEDICARE, SELFPAY ==
--- NOTE | 2022-04-01 09:10 | DI.ECHO.S_ITS ---
[facility]---------+ [facility] +---------+ : : [address] : : : : [id number] : : : : Phone: [phone]+ Echocardiogram Report + + :Name: ANNA ESTEVES Study Date: 04/01/2022 Height: 69 in : :[facility] ReadingLocation: Weight: 240 lb : : Gender: Female BSA: 2.2 m2 : :: 1950 Age: 71 yrs BP: 127/80 mmHg: :Reason For Study: AORTIC STENOSIS : :Ordering Physician: JENNIFER, : :JAYY Performed By: Radha Esposito : :Referring: JAYY ELI : + + Interpretation Summary 1) Normal left ventricular thickness, size, wall motion, and systolic function (EF 60-65%). 2) Normal right ventricular size and function. 3) There is severe aortic stenosis (mean gradient 62mm Hg, severity ratio 0.67cm2, severity ratio 0.18). 4) Compared to the Echo done 08/16/2021, severe aortic stenosis is clearly present on this study. Procedure: A two-dimensional transthoracic echocardiogram with color flow and Doppler was performed. The study quality was technically adequate. Comparison is made with the echocardiogram of 08/15/2021. The patient was in sinus rhythm with heart rates between 89-97 bpm during the exam. Left Ventricle: The left ventricle is normal in size and wall thickness. The ejection fraction is estimated to be 60-65%. Left ventricular systolic function appears normal without focal wall motion abnormalities. Right Ventricle: The right ventricle is normal in size and function. Atria: The left atrial size is normal. Right atrial size is normal. There is no Doppler evidence for an interatrial shunt. Mitral Valve: The mitral valve is normal in structure and function. There is mild mitral annular calcification. There is no mitral regurgitation noted. Aortic Valve: The aortic valve is severely calcified. There is severely reduced leaflet mobility. The peak aortic velocity is 5.0 m/sec. The aortic valve mean gradient is 62 mmHg. The calculated aortic valve area is 0.67 cm2. There is severe aortic stenosis. No aortic regurgitation is present. Tricuspid Valve: The tricuspid valve is not well visualized, but is grossly normal. There is trace tricuspid regurgitation. Pulmonic Valve: The pulmonic valve leaflets are thin and pliable; valve motion is normal. There is mild pulmonic regurgitation. Great Vessels: The aortic root is normal size. The dimensions of the ascending aorta are normal. The inferior vena cava was not well visualized. Pericardium/ Pleura There is no pericardial effusion. There is no pleural effusion. MMode/2D Measurements & Calculations LVIDd: 4.0 cm LVOT diam: 2.0 cm LVIDs: 2.6 cm Ao root diam: 2.7 cm FS: 35.1 % asc Aorta Diam: 3.3 cm IVSd: 0.96 cm Ao Arch Diam (Prox Trans): 2.9 cm LVPWd: 1.0 cm LV howard. diameter/BSA (cm/m^2): 1.8 LV sys. diameter/BSA (cm/m^2): 1.2 LA A2 area: 18.6 cm2 RA long axis: 4.8 cm LA A4 area: 18.8 cm2 RA area: 15.4 cm2 LA length (vol): 5.4 cm RA vol: 42.3 ml LA vol: 55.3 ml RA : 18.9 ml/m2 LA vol index: 24.8 ml/m2 RVD1 (basal): 3.6 cm RVD2 (mid): 2.9 cm TAPSE: 2.1 cm Doppler Measurements & Calculations Ao V2 max: 501.1 cm/sec LVOT Max Maciej: 106.9 cm/sec Ao V2 mean: 358.1 cm/sec LV V1 max P.6 mmHg Ao max P.1 mmHg LV V1 VTI: 20.2 cm Ao mean P.3 mmHg MAXI(I,D): 0.56 cm2 Ao V2 VTI: 113.1 cm MAXI(V,D): 0.67 cm2 sev ratio: 0.18 MAXI indexed to BSA (cm^2/m^2): 0.25 MV E max maciej: 80.1 cm/sec TR max maciej: 202.2 cm/sec MV A max maciej: 108.7 cm/sec TR max P.4 mmHg MV E/A: 0.74 PA V2 max: 124.4 cm/sec Med Peak E' Maciej: 6.1 cm/sec PA V2 mean: 83.2 cm/sec E/E' med: 13.1 PA mean P.2 mmHg Lat Peak E' Maciej: 7.0 cm/sec PA pr(Accel): 36.6 mmHg E/E' lat: 11.5 E/e' average: 12.3 MV dec time: 0.26 sec SV(LVOT): 63.3 ml Reading Physician:12:39 PM
== END ==
PROVIDERS: PCP Student in an Organized Health Care Education/Training Program; Referring Provider Internal Medicine Cardiovascular Disease; Visit Provider Internal Medicine Cardiovascular Disease
DX: I35.0 Nonrheumatic aortic (valve) stenosis (principal)
CPT/HCPCS: 93306

== ENCOUNTER → 2022-09-16 14:26 | Outpatient (CLI) | payer MEDICARE, SELFPAY ==
[2022-09-16 16:56] LABS: Free T4, Direct Thyroxine 2.25 ng/dL (0.78-2.19)
[2022-09-16 17:09] LABS: Thyroid Stimulating Hormone 0.803 uIU/mL (0.47-4.68)
== END ==
PROVIDERS: PCP Student in an Organized Health Care Education/Training Program; Referring Provider Student in an Organized Health Care Education/Training Program; Visit Provider Student in an Organized Health Care Education/Training Program
DX: E03.9 Hypothyroidism, unspecified (principal)
CPT/HCPCS: 36415; 84439; 84443

== ENCOUNTER → 2023-09-04 08:37 | Outpatient (CLI) | payer MEDICARE, SELFPAY ==
[2023-09-04 10:59] LABS: Add Manual Diff / Slide Review NO; Basophils Absolute Auto 0 /uL (0-100); Basophils Percent Auto 0.4 % (0-2); Eosinophils Absolute Auto 100 /uL (0-450); Eosinophils Percent Auto 2.1 % (2-4); Hematocrit 37.6 % (36-46); Hemoglobin 12.6 g/dL (12.0-16.0); Lymphocytes Absolute Auto 1300 /uL (1100-4500); Lymphocytes Percent Auto 19.1 % (25-40); Mean Corpuscular HGB Conc 33.5 % (30-36); Mean Corpuscular Hemoglobin 31.5 PG (26-34); Mean Corpuscular Volume 93.9 fL (80-100); Monocytes Absolute Auto 900 /uL (0-900); Monocytes Percent Auto 12.7 % (3-14); Neutrophils Absolute Auto 4600 /uL (1500-7000); Neutrophils Percent Auto 65.7 % (50-75); Platelet Count 229 X10^3/uL (150-400); Red Cell Distribution Width 13.8 % (11.6-14.8)
[2023-09-04 11:26] LABS: BUN Creatinine Ratio 17.3 (6-22); Blood Urea Nitrogen 27 mg/dL (7-17); Carbon Dioxide 28 mmol/L (22-32); Chloride 104 mmol/L (98-107); Cholesterol 156 mg/dL (140-199); Estimated Glomerular Filt Rate 34 mL/min (>60); Glucose 83 mg/dL (80-110); HDL Cholesterol 52 mg/dL (40-60); HEMOLYSIS < 15 (0-50); LDL Cholesterol Calculated 87 mg/dL (<100); Potassium 4.3 mmol/L (3.4-5.1); Sodium 138 mmol/L (137-145); Triglycerides 87 mg/dL (35-150)
== END ==
PROVIDERS: Referring Provider Internal Medicine Cardiovascular Disease; Visit Provider Internal Medicine Cardiovascular Disease
DX: E78.5 Hyperlipidemia, unspecified (principal)
CPT/HCPCS: 36415; 80048; 80061; 85025

== ENCOUNTER → 2023-09-25 13:33 | Outpatient (CLI) | payer MEDICARE, SELFPAY ==
--- NOTE | 2023-09-25 13:35 | DI.ECHO.S_ITS ---
[facility] +---------+ [facility] +---------+ : : [address] : : : : [id number] : : : : Phone: [phone]+ Echocardiogram Report + + :Name: ANNA ESTEVES Study Date: 09/25/2023 Height: 69 in : :[facility] ReadingLocation: Weight: 232 lb : : Gender: Female BSA: 2.2 m2 : :: 1950 Age: 73 yrs BP: 129/73 mmHg: :Reason For Study: PROSTHETIC HEART VALVE : :Ordering Physician: MICHELLE, : :MARGIE Performed By: Radha Esposito : :Referring: MARGIE MARTINEZ : + + Interpretation Summary The left ventricle is normal in size and wall thickness. The ejection fraction is estimated to be 60-65%. Diastolic parameters suggest a relaxation abnormality of the left ventricle, consistent with probable normal filling pressures. The right ventricle is normal in size and function. Right ventricular systolic pressure is estimated to be 22 mmHg plus the clinically estimated CVP which cannot be estimated on this exam. The left atrial size is normal. There is a prosthetic aortic valve. The peak aortic velocity is 2.4 m/sec. The aortic root is normal size. Procedure: A two-dimensional transthoracic echocardiogram with color flow and Doppler was performed. The study quality was technically difficult. Comparison is made with the echocardiogram of 07/25/2022. The patient was in sinus rhythm with heart rates between 74-89 bpm during the exam. Left Ventricle: The left ventricle is normal in size and wall thickness. The ejection fraction is estimated to be 60-65%. Diastolic parameters suggest a relaxation abnormality of the left ventricle, consistent with probable normal filling pressures. Right Ventricle: The right ventricle is normal in size and function. Atria: The left atrial size is normal. Right atrial size is normal. There is no Doppler evidence for an interatrial shunt. Mitral Valve: There is mild mitral annular calcification. The mitral valve chordae are thickened and/or calcified. There is trace mitral regurgitation. Aortic Valve: There is a prosthetic aortic valve. The peak aortic velocity is 2.4 m/sec. The aortic valve mean gradient is 13 mmHg. No aortic regurgitation is present. Tricuspid Valve: The tricuspid valve is normal in structure and function. There is mild tricuspid regurgitation. Right ventricular systolic pressure is estimated to be 22 mmHg plus the clinically estimated CVP which cannot be estimated on this exam. Pulmonic Valve: The pulmonic valve is not well seen, but is grossly normal. There is mild pulmonic regurgitation. Great Vessels: The aortic root is normal size. The dimensions of the ascending aorta are normal. The inferior vena cava was not visualized. Pericardium/ Pleura There is no pericardial effusion. There is an anterior echo-free space consistent with a fat pad. There is no pleural effusion. MMode/2D Measurements & Calculations LVIDd: 4.1 cm LVOT diam: 1.8 cm LVIDs: 3.1 cm asc Aorta Diam: 3.2 cm FS: 25.0 % Ao Arch Diam (Prox Trans): 2.8 cm IVSd: 0.71 cm LVPWd: 0.80 cm LV howard. diameter/BSA (cm/m^2): 1.9 LV sys. diameter/BSA (cm/m^2): 1.4 LA A2 area: 16.5 cm2 RA long axis: 4.4 cm LA A4 area: 13.3 cm2 RA area: 12.6 cm2 LA length (vol): 5.1 cm RA vol: 30.2 ml LA vol: 36.6 ml RA : 13.7 ml/m2 LA vol index: 16.7 ml/m2 RVD1 (basal): 3.9 cm TAPSE: 2.7 cm Doppler Measurements & Calculations Ao V2 max: 238.7 cm/sec LVOT Max Maciej: 120.2 cm/sec Ao V2 mean: 168.8 cm/sec LV V1 max P.8 mmHg Ao max P.8 mmHg LV V1 VTI: 23.7 cm Ao mean P.6 mmHg MAXI(I,D): 1.2 cm2 Ao V2 VTI: 46.6 cm MAXI(V,D): 1.2 cm2 sev ratio: 0.51 MAXI indexed to BSA (cm^2/m^2): 0.56 MV E max maciej: 79.0 cm/sec TR max maciej: 235.0 cm/sec MV A max maciej: 93.8 cm/sec TR max P.1 mmHg MV E/A: 0.84 PA V2 max: 97.7 cm/sec MV dec time: 0.25 sec PA V2 mean: 65.5 cm/sec PA mean P.9 mmHg PA pr(Accel): 39.6 mmHg SV(LVOT): 57.6 ml Reading Physician:06:45 PM
--- NOTE | 2023-09-25 14:00 | DI.RAD.S_ITS ---
Bone Density Report Name: KIAN ESTEVES Age: 73 Sex: Female Ethnicity: White Date of : 1950 Indication: postmenopausal; screening for osteoporosis; Referring Provider: MARGIE MARTINEZ Study: Bone densitometry was performed. Exam Date: September 25, 2023 Accession number: [id number] Bone Density: Region BMD T-score Z-score Classification Femoral Neck (Left) 0.972 1.1 3.2 Normal Total Hip (Left) 0.946 0.0 1.8 Normal Total Forearm (Left) 0.639 1.1 3.6 Normal 1/3 Forearm (Left) 0.709 0.2 2.8 Normal UD Forearm (Left) 0.548 1.8 3.7 Normal World Health Organization criteria for BMD impression classify patients as: Normal (T-score at or above -1.0), Osteopenia (T-score between -1.0 and -2.5), or Osteoporosis (T-score at or below -2.5). 10-year Fracture Risk: FRAX not reported because: All T-scores for Spine Total, Hip Total, Femoral Neck at or above -1.0 Previous Exams: -- Region Exam Age BMD T-score BMD Change BMD Change Date g/cm2 vs Baseline vs Previous -- Total Hip(Left) 09/25/2023 73 0.946 0.0 -0.108 (-10.3%)# -0.108 (-10.3%)# 06/12/2021 70 1.054 0.9 -- *Denotes significance at 95% confidence level, LSC for Total Hip = 0.027 g/cm2 # Denotes dissimilar scan types or analysis methods Impression: The patient has normal bone mass. No significant bone loss was observed. Discussion: BONE DENSITY IS ABOVE THE MINIMUM DESIRABLE LEVEL AT ALL SKELETAL SITES TESTED. This patient's bone mineral density is above the minimum desirable level (T-score -1.0 or better) at all sites measured. The patient should follow a healthful lifestyle (good nutrition with adequate calcium and vitamin D, and appropriate weight-bearing exercise). Follow-Up: Consider repeating this study in 5 years or sooner if there is some new clinical indication. Reported by: TAVON GRAMAJO M.D. on 09/25/2023 3:10:00 PM.
== END ==
PROVIDERS: PCP Family Medicine; Referring Provider Family Medicine; Visit Provider Family Medicine
DX: I34.81 Nonrheumatic mitral (valve) annulus calcification (principal); I07.1 Rheumatic tricuspid insufficiency; I37.1 Nonrheumatic pulmonary valve insufficiency; Z95.2 Presence of prosthetic heart valve; Z13.820 Encounter for screening for osteoporosis; Z78.0 Asymptomatic menopausal state; E03.9 Hypothyroidism, unspecified; R94.4 Abnormal results of kidney function studies
CPT/HCPCS: 36415; 77080; 77081; 80048; 84443; 93306

== ENCOUNTER → 2023-09-25 15:10 | Outpatient (CLI) | payer MEDICARE, SELFPAY ==
[2023-09-25 16:47] LABS: Blood Urea Nitrogen 24 mg/dL (7-17); Calcium 10.3 mg/dL (8.4-10.2); Carbon Dioxide 27 mmol/L (22-32); Chloride 103 mmol/L (98-107); Estimated Glomerular Filt Rate 39 mL/min (>60); Glucose 85 mg/dL (80-110); HEMOLYSIS < 15 (0-50); Potassium 4.6 mmol/L (3.4-5.1); Sodium 137 mmol/L (137-145)
[2023-09-25 17:25] LABS: Thyroid Stimulating Hormone 3.48 uIU/mL (0.47-4.68)
== END ==
PROVIDERS: PCP Family Medicine; Referring Provider Family Medicine; Visit Provider Family Medicine
DX: E03.9 Hypothyroidism, unspecified (principal); R94.4 Abnormal results of kidney function studies
CPT/HCPCS: 36415; 80048; 84443

== ENCOUNTER → 2023-12-01 11:19 | Outpatient (CLI) | payer MEDICARE, SELFPAY ==
[2023-12-01 12:30] LABS: BUN Creatinine Ratio 16.3 (6-22); Blood Urea Nitrogen 22 mg/dL (7-17); Calcium 9.5 mg/dL (8.4-10.2); Carbon Dioxide 23 mmol/L (22-32); Chloride 104 mmol/L (98-107); Estimated Glomerular Filt Rate 41 mL/min (>60); Glucose 87 mg/dL (80-110); Potassium 4.4 mmol/L (3.4-5.1); Sodium 138 mmol/L (137-145)
[2023-12-01 12:36] LABS: HEMOLYSIS 60 (0-50)
== END ==
PROVIDERS: PCP Family Medicine; Referring Provider Family Medicine; Visit Provider Family Medicine
DX: E03.9 Hypothyroidism, unspecified (principal); N18.32 Chronic kidney disease, stage 3b
CPT/HCPCS: 36415; 80048

== ENCOUNTER → 2023-12-12 15:14 | Outpatient (CLI) | payer MEDICARE, SELFPAY ==
--- NOTE | 2023-12-12 15:16 | DI.US.S_ITS ---
PROCEDURE: US RENAL COMPLETE INDICATIONS: STAGE 3B CKD TECHNIQUE: Real-time scanning was performed of the kidneys and bladder, with image documentation. COMPARISON: None. FINDINGS: Kidneys: Kidneys are normal in size. Right kidney measures 9.8 cm long; left kidney measures 9.2 cm long. Bilateral kidneys are not well seen secondary to patient body habitus. No hydronephrosis. No definite nephrolithiasis or renal lesion. Bladder: Evaluation of the bladder is limited secondary to under distension. No ureteral jets are seen bilaterally. Miscellaneous: No free pelvic fluid. IMPRESSION: Evaluation is limited secondary to patient body habitus. 1. Bilateral kidneys are grossly within normal limits with no hydronephrosis. 2. Evaluation of the bladder is limited secondary to under distension. Dictated by: Alla Navarrete M.D. on 12/12/2023 at 16:51 Approved by: Alla Navarrete M.D. on 12/12/2023 at 16:54
== END ==
PROVIDERS: PCP Family Medicine; Referring Provider Family Medicine; Visit Provider Family Medicine
DX: N18.32 Chronic kidney disease, stage 3b (principal); N28.9 Disorder of kidney and ureter, unspecified; R93.429 Abnormal radiologic findings on diagnostic imaging of unspecified kidney
CPT/HCPCS: 76770

== ENCOUNTER → 2024-08-02 13:38 | Outpatient (CLI) | payer MEDICARE, SELFPAY ==
--- NOTE | 2024-08-02 13:39 | DI.ECHO.S_ITS ---
[facility] +---------+ Hospital : : [address] : [address] : : [id number] : : Phone: [phone] Echocardiogram Report + + :Name: ANNA ESTEVES Study Date: 08/02/2024 Height: 69 in : :[facility] ReadingLocation: Weight: 230 lb : : Gender: Female BSA: 2.2 m2 : :: 1950 Age: 73 yrs BP: 130/78 mmHg: :Reason For Study: S/P TAVR : :Ordering Physician: JENNIFER, : :JAYY Performed By: Sagar Ramos : :Referring: JAYY ELI : + + Interpretation Summary 1) Normal left ventricular thickness, size, wall motion, and systolic function (EF 60-65%). 2) Normal right ventricular size and function. 3) There is a bioprosthetic aortic valve that is well seated and opens well (mean gradient 15mmHg). No aortic regurgitation is present. 4) Compared to the Echo done 09/25/2023, no significant change. Procedure: A two-dimensional transthoracic echocardiogram with color flow and Doppler was performed. The study quality was technically difficult. Comparison is made with the echocardiogram of 09/25/23. The patient was in normal sinus rhythm during the exam. Left Ventricle: The left ventricle is normal in size and wall thickness. There is no ventricular septal defect visualized. The ejection fraction is estimated to be 60-65%. Left ventricular systolic function appears normal without focal wall motion abnormalities. Right Ventricle: The right ventricle is normal size. The right ventricular systolic function is normal. Atria: The left atrial size is normal. Right atrial size is normal. The interatrial septum is not well visualized. Mitral Valve: The mitral valve is normal in structure and function. There is mild mitral annular calcification. There is no mitral regurgitation noted. Aortic Valve: The prosthetic aortic valve is well-seated. The peak aortic velocity is 2.5 m/sec. The aortic valve mean gradient is 14.5 mmHg. No aortic regurgitation is present. Tricuspid Valve: The tricuspid valve is not well visualized. There is trace tricuspid regurgitation. Pulmonic Valve: The pulmonic valve is not well seen, but is grossly normal. The pulmonic valve is not well visualized. There is mild pulmonic regurgitation. Great Vessels: The aortic root is normal size. The dimensions of the ascending aorta are normal. The pulmonary artery is normal size. The inferior vena cava was not visualized. Pericardium/ Pleura There is no pericardial effusion. There is no pleural effusion. MMode/2D Measurements & Calculations LVIDd: 4.0 cm LVOT diam: 1.8 cm LVIDs: 2.1 cm asc Aorta Diam: 3.3 cm FS: 46.4 % Ao Arch Diam (Prox Trans): 2.6 cm EPSS: 0.32 cm IVSd: 0.95 cm LVPWd: 0.93 cm LV howard. diameter/BSA (cm/m^2): 1.8 LV sys. diameter/BSA (cm/m^2): 0.97 LA A2 area: 18.1 cm2 RA long axis: 3.7 cm LA A4 area: 17.8 cm2 RA area: 8.8 cm2 LA length (vol): 5.2 cm RA vol: 17.7 ml LA vol: 52.8 ml RA : 8.1 ml/m2 LA vol index: 24.1 ml/m2 RVD1 (basal): 3.8 cm RVD2 (mid): 3.0 cm TAPSE: 1.8 cm Doppler Measurements & Calculations Ao V2 max: 249.3 cm/sec LVOT Max Maciej: 141.2 cm/sec Ao V2 mean: 180.4 cm/sec LV V1 max P.0 mmHg Ao max P.9 mmHg LV V1 VTI: 29.3 cm Ao mean P.5 mmHg MAXI(I,D): 1.5 cm2 Ao V2 VTI: 46.7 cm MAXI(V,D): 1.4 cm2 sev ratio: 0.63 MAXI indexed to BSA (cm^2/m^2): 0.70 MV E max maciej: 76.5 cm/sec TR max maciej: 227.0 cm/sec MV A max maciej: 101.4 cm/sec TR max P.6 mmHg MV E/A: 0.75 PA V2 max: 110.1 cm/sec Med Peak E' Maciej: 6.3 cm/sec PA V2 mean: 66.1 cm/sec E/E' med: 12.2 PA mean P.2 mmHg Lat Peak E' Maciej: 6.5 cm/sec PA pr(Accel): 44.7 mmHg E/E' lat: 11.8 E/e' average: 12.0 MV dec time: 0.25 sec SV(LVOT): 71.5 ml Reading Physician:09:01 PM
== END ==
LOC: ECHO 13:39
PROVIDERS: PCP Family Medicine; Referring Provider Internal Medicine Cardiovascular Disease; Visit Provider Internal Medicine Cardiovascular Disease
DX: Z95.2 Presence of prosthetic heart valve (principal); I34.81 Nonrheumatic mitral (valve) annulus calcification
CPT/HCPCS: 93306

== ENCOUNTER → 2024-08-26 13:28 | Outpatient (CLI) | payer MEDICARE, SELFPAY ==
[2024-08-26 14:35] LABS: Hematocrit 42.3 % (36-46); Hemoglobin 14.1 g/dL (12.0-16.0); Mean Corpuscular HGB Conc 33.2 % (30-36); Mean Corpuscular Hemoglobin 31.1 PG (26-34); Mean Corpuscular Volume 93.7 fL (80-100); Platelet Count 239 X10^3/uL (150-400); Red Blood Cell Count 4.51 X10^6/uL (4.0-5.2); White Blood Cell Count 7.4 X10^3/uL (4.5-11.0)
[2024-08-26 14:59] LABS: BUN Creatinine Ratio 12.3 (6-22); Blood Urea Nitrogen 20 mg/dL (7-17); Calcium 9.9 mg/dL (8.4-10.2); Carbon Dioxide 27 mmol/L (22-32); Chloride 102 mmol/L (98-107); Cholesterol 144 mg/dL (140-199); Estimated Glomerular Filt Rate 33 mL/min (>60); Glucose 82 mg/dL (80-110); HDL Cholesterol 49 mg/dL (40-60); HEMOLYSIS < 15 (0-50); LDL Cholesterol Calculated 71 mg/dL (<100); Potassium 4.9 mmol/L (3.4-5.1); Sodium 137 mmol/L (137-145); Triglycerides 118 mg/dL (35-150)
== END ==
PROVIDERS: PCP Family Medicine; Referring Provider Internal Medicine Cardiovascular Disease; Visit Provider Internal Medicine Cardiovascular Disease
DX: E78.5 Hyperlipidemia, unspecified (principal)
CPT/HCPCS: 36415; 80048; 80061; 85027

== ENCOUNTER → 2024-11-05 13:34 | Outpatient (CLI) | payer MEDICARE, SELFPAY ==
--- NOTE | 2024-11-05 13:36 | DI.RAD.S_ITS ---
PROCEDURE: XR LUMBAR SPINE MIN 4V INDICATIONS: Lower Back Pain TECHNIQUE: 5 views of the lumbar spine were acquired, including bilateral oblique views. COMPARISON: [facility], CR, XR LUMBAR SPINE MIN 4V, 07/04/2020, 12:57. FINDINGS: Bones: 5 nonrib-bearing vertebrae are present. There is normal bony alignment. Loss of disc height, degenerative endplate changes and bilateral facet arthrosis throughout lumbar spine is seen. No vertebral body compression fractures. No suspicious bony lesions. Prior right total hip arthroplasty. Soft tissues: Overlying bowel gas pattern is normal. No suspicious soft tissue calcifications. Oblique images: No pars defects. Bilateral bony foraminal stenosis at L3-4 through L5-S1 levels are seen. IMPRESSION: 1. 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 No acute compression fracture. 2. Oblique views show bilateral bony foraminal stenosis at L3-4 through L5-S1 levels . No gross pars defects. Dictated by: Scott Stanford M.D. on 11/05/2024 at 15:27 Approved by: Scott Stanford M.D. on 11/05/2024 at 15:28
== END ==
LOC: RAD 13:35
PROVIDERS: PCP Family Medicine; Referring Provider Physical Medicine & Rehabilitation; Visit Provider Physical Medicine & Rehabilitation
DX: M51.369 Other intervertebral disc degeneration, lumbar region without mention of lumbar back pain or lower extremity pain (principal); M48.061 Spinal stenosis, lumbar region without neurogenic claudication; M48.07 Spinal stenosis, lumbosacral region; M47.816 Spondylosis without myelopathy or radiculopathy, lumbar region; Z96.641 Presence of right artificial hip joint
CPT/HCPCS: 72110

== ENCOUNTER 2024-12-28 14:22 | Outpatient (CLI) | payer MEDICARE, SELFPAY ==
[2024-12-28] VITALS (8 sets, daily range): BP systolic 103–133; BP diastolic 58–83; PULSE 75–90; RESP 13–18; TEMP 36.3; O2SAT 94–100
--- NOTE | 2024-12-28 15:09 | P.PCN_ITS ---
Date/Time/Diagnoses Date of procedure: 12/28/24 Time of procedure: 15:46 Pre-procedure diagnosis: 1. FACET ARTHROPATHY Post-procedure diagnosis: same Procedure Notes Procedure: 1. BILATERAL- L4, L5 and S1 DIAGNOSTIC MB BLOCKS with SA Anesthetic Indications: Mere is referred by Dr. Felix for treatment of Bilateral Axial LBP. Physician: Cristino Horn Total Fluoroscopy time (seconds): 12 Total sedation minutes: 19 Complications: none Procedure in detail & Post-procedure care: DESCRIPTION OF PROCEDURE Fluoroscopically guided, contrast-controlled bilateral L4, L5 and S1 medial branch blocks with 0.5cc of 2% Lidocaine. Following review of allergy and review of potential side effects and complications, including, but not necessarily limited to, infection, allergic reaction, local tissue breakdown, nerve injury, paralysis, stroke and possible , the patient indicated that the patient understood and agreed to proceed. An informed consent document was signed by the patient, witnessed by a nurse, and placed in the patient's chart. After review of previous anaesthesic history and IV conscious sedation the patient was deemed safe to proceed with today's procedure with IV conscious sed ation as ASA class II designation. Safety time-out was performed to confirm patient ID, procedure to be performed and site of procedure. IV sedation was accomplished with a combination of 2mg of Versed was administered by the RN after DO order, titrated to patient comfort during the course of the procedure while the patient remained responsive to all verbal commands In the prone position, following sterile prep and drape of the lumbar region, the right L4, L5 and S1 anatomical location of the medial branch of the dorsal ramus was identified fluoroscopically. Subsequently an anesthetic skin wheal using 1% lidocaine solution was initiated at each of the anatomical spots. Subsequently then a 22-gauge 3.5-inch spinal needle was atraumatically introduced and advanced under fluoroscopic guidance at each of the corresponding sites at the right L4, L5 and S1 MB. After negative aspiration, 0.2cc of Isovue 200 was injected, confirming placement without vascular or intrathecal uptake. Subsequently then 0.5cc of 2% Lidocaine solution was injected at each of the corresponding sites at the right L4, L5 and S1 medial branch locations. The identical procedure was replicated on the left. The patient tolerated the procedure well without signs or symptoms of complications prior to transfer to the recovery area continued monitoring without incident. Post-procedure, the patient was monitored initiating provocative activities to measure the amount of relief from block of the facetogenic pain. The patient reported a VAS of 7 prior to the procedure and a post-procedure VAS of 1. It has been a pleasure to assist in the diagnostic and therapeutic care of your patient. POST OP INSTRUCTIONS The patient was provided with a Pain Log to complete over the next several hours and subsequent days prior to the patient's follow up with the ordering physician. 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 The patient is aware, was provided, once again, with a Pain Log and will follow up with the referring physician for review and clinical correlation
[2024-12-28] MEDS: MIDAZOLAM 2 MG/2 ML VIAL IV (15:25)
[2024-12-28] MEDS: LIDOCAINE 2% INJ SDV 5ML 1 ML INJ (15:29)
[2024-12-28] MEDS: iopamidoL 15 ML VIAL 3 ML INJ (15:30)
[2024-12-28] MEDS: LIDOCAINE 1% 20 ML 5 ML INJ (15:30)
== END 2024-12-28 16:05 | disposition home or self-care (01) ==
PROVIDERS: PCP Family Medicine; Referring Provider Physical Medicine & Rehabilitation; Visit Provider Physical Medicine & Rehabilitation
DX: M47.816 Spondylosis without myelopathy or radiculopathy, lumbar region (principal); M47.817 Spondylosis without myelopathy or radiculopathy, lumbosacral region
CPT/HCPCS: 64493; 64494; 99152; J2250

== ENCOUNTER → 2025-01-24 13:18 | Outpatient (CLI) | payer MEDICARE, SELFPAY ==
[2025-01-24 14:15] LABS: Creatinine Urine Random 35.75 mg/dL; Protein (Total) Urine Random 14 mg/dL (0-12); Protein Creatinine Ratio Urine 0.39 GRAM/24H
[2025-01-24 14:29] LABS: Hemoglobin 14.8 g/dL (12.0-16.0)
[2025-01-24 14:44] LABS: BUN Creatinine Ratio 12.2 (6-22); Blood Urea Nitrogen 18 mg/dL (7-17); Carbon Dioxide 22 mmol/L (22-32); Chloride 101 mmol/L (98-107); Estimated Glomerular Filt Rate 37 mL/min (>60); Glucose 81 mg/dL (80-110); HEMOLYSIS < 15 (0-50); Potassium 4.5 mmol/L (3.4-5.1); Sodium 137 mmol/L (137-145)
== END ==
PROVIDERS: PCP Family Medicine; Referring Provider Student in an Organized Health Care Education/Training Program; Visit Provider Student in an Organized Health Care Education/Training Program
DX: D70.9 Neutropenia, unspecified (principal); D63.1 Anemia in chronic kidney disease; R80.9 Proteinuria, unspecified
CPT/HCPCS: 36415; 80048; 82570; 84156; 85014; 85018

== ENCOUNTER → 2025-02-28 15:09 | Outpatient (CLI) | payer MEDICARE, SELFPAY ==
[2025-02-28 17:26] LABS: BUN Creatinine Ratio 18.6 (6-22); Blood Urea Nitrogen 30 mg/dL (7-17); Calcium 9.8 mg/dL (8.4-10.2); Carbon Dioxide 26 mmol/L (22-32); Chloride 99 mmol/L (98-107); Estimated Glomerular Filt Rate 33 mL/min (>60); Glucose 93 mg/dL (70-99); HEMOLYSIS < 15 (0-50); Potassium 4.7 mmol/L (3.4-5.1); Sodium 136 mmol/L (137-145)
[2025-02-28 17:51] LABS: Thyroid Stimulating Hormone 0.191 uIU/mL (0.47-4.68)
== END ==
LOC: LAB 15:11
PROVIDERS: PCP Family Medicine; Referring Provider Family Medicine; Visit Provider Family Medicine
DX: E03.9 Hypothyroidism, unspecified (principal); N18.30 Chronic kidney disease, stage 3 unspecified
CPT/HCPCS: 36415; 80048; 84443

== ENCOUNTER 2025-05-19 10:34 | Outpatient (CLI) | payer MEDICARE, SELFPAY ==
[2025-05-19] VITALS (13 sets, daily range): BP systolic 111–132; BP diastolic 56–68; PULSE 77–86; RESP 16–21; TEMP 36.3; O2SAT 97–100
[2025-05-19] MEDS: MIDAZOLAM 2 MG/2 ML VIAL IV (12:22)
[2025-05-19] MEDS: BUPIVACAINE 0.5% (PF) 10 ML VIAL 5 ML INJ (12:26)
[2025-05-19] MEDS: LIDOCAINE 1% 20 ML 5 ML INJ (12:26)
[2025-05-19] MEDS: MIDAZOLAM 2 MG/2 ML VIAL 1 MG IV ×2 (12:39→12:48)
--- NOTE | 2025-05-19 13:06 | P.PCN_ITS ---
Date/Time/Diagnoses Date of procedure: 05/19/25 Time of procedure: 13:06 Pre-procedure diagnosis: 1. RECALCITRANT FACET ARTHROPATHY Post-procedure diagnosis: same Procedure Notes Procedure: 1. BILATERAL L4 AND L5 MEDIAL BRANCH RADIOFREQUENCY NEUROTOMY AND S1 DORSAL RAMUS BRANCH RADIOFREQUENCY NEUROTOMY Indications: Mere is referred by Dr. Jonas for treatment of facet arthropathy. Physician: Cristino Horn Total Fluoroscopy time (seconds): 22 Total sedation minutes: 38 Complications: none Procedure in detail & Post-procedure care: DESCRIPTION OF PROCEDURE Bilateral L4 and L5 medial branch radiofrequency neurotomy and bilateral S1 dorsal ramus radiofrequency neurotomy under fluoroscopy with conscious sedation. The patient is well known to this clinic having undergone previous facet injections with good but temporary relief. The patient has experienced appropriate, concordant relief with previous facet and median branch blocks but the patient's pain has been recalcitrant to further conservative measures. Therefore, based upon the patient's relief and persistent symptoms, the patient is considered an appropriate candidate for facet rhizotomy. All of the patient's questions regarding the risks versus benefits of the procedure, including, but not limited to, bleeding, infection, temporary as well as lasting nerve injury, paralysis, stroke, and , as well treatment alternatives were answered to satisfaction. After obtaining informed consent, denial of pertinent drug allergies, as well as being made aware of the potential risks of bleeding, infection, spinal cord trauma, paralysis, temporary and permanent nerve damage, seizure, stroke, and possible , the patient was brought to the fluoroscopy suite and positioned prone on the fluoroscopy table. The lumbar region was prepped in usual sterile fashion and covered with a fenestrated drape in the usual sterile fashion. Appropriate monitors applied including pulse oximeter, pulse, and blood pressure for regular monitoring throughout the procedure. After review of previous anaesthesic history and IV conscious sedation the patient was deemed safe to proceed with today's procedure with IV conscious sedation as ASA class II designation. Safety time-out was performed to confirm patient ID, procedure to be performed and site of procedure. IV sedation was accomplished with a combination of 4mg of Versed administered by the RN after DO order, titrated to patient comfort during the course of the procedure while the patient remained responsive to all verbal commands. After local infiltration using 1% lidocaine, under fluoroscopic guidance, a 10- cm RF insulated needle with a 10-mm active tip was positioned parallel to the junction of the right sacral ala and the superior articulating process where the S1 dorsal ramus resides. Needle placement was confirmed with motor stimulation of .5v on the right which produced local stimulation without radicular component. The stimulation was then increased to 2v with, once again, only local multifidus stimulation without radicular component. The needle was then removed and the identical procedure was performed along the length of the right L5 medial branch with motor stimulation at .7v on the right. The identical procedure was once again performed along the length of the right L4 medial branch with motor stimulation of .5v on the right. The medial branches were then anesthetised with 0.5% Marcaine. This was then followed by two discreet lesions performed at 80 degrees Celsius for 90 seconds each. The identical procedure was repeated on the left. The patient tolerated the procedure well without signs or symptoms of complications prior to transfer to the recovery area continued monitoring without incident. The patient was then transferred to the recovery area where they were observed for an appropriate period of time after the injection. The patient reported a VAS score of 9 prior to the procedure and a post-procedure VAS of 0. POST OP INSTRUCTIONS The patient was provided a Pain Log to continue to record the patient's response to the target-specific procedure prior to the patient's follow-up visit with the referring physician. Additionally, specific post-injection care instructions and a contact number to our office were provided if concerns arise regarding possible complications associated with the procedure are suspected.
== END 2025-05-19 13:25 | disposition home or self-care (01) ==
PROVIDERS: PCP Family Medicine; Referring Provider Physical Medicine & Rehabilitation; Visit Provider Physical Medicine & Rehabilitation
DX: M47.816 Spondylosis without myelopathy or radiculopathy, lumbar region (principal); M47.817 Spondylosis without myelopathy or radiculopathy, lumbosacral region
CPT/HCPCS: 64635; 64636; 99152; 99153; J2250

== ENCOUNTER → 2025-08-01 15:08 | Outpatient (CLI) | payer MEDICARE, SELFPAY ==
[2025-08-01 17:20] LABS: Thyroid Stimulating Hormone 0.523 uIU/mL (0.47-4.68)
== END ==
PROVIDERS: PCP Family Medicine; Referring Provider Family Medicine; Visit Provider Family Medicine
DX: E03.9 Hypothyroidism, unspecified (principal)
CPT/HCPCS: 36415; 84443

== ENCOUNTER → 2025-08-23 13:39 | Outpatient (CLI) | payer MEDICARE, SELFPAY ==
--- NOTE | 2025-08-23 13:40 | DI.ECHO.S_ITS ---
[facility] : : [address] : [address] : : [id number] : : Phone: [phone] Echocardiogram Report + + :Name: ANNA ESTEVES Study Date: 08/23/2025 Height: 69 in : :[facility] ReadingLocation: Weight: 242 lb : : Gender: Female BSA: 2.2 m2 : :: 1950 Age: 75 yrs BP: 120/71 mmHg: :Reason For Study: S/P TAVR : :Ordering Physician: JENNIFER, : :JAYY Performed By: Rik Crook : :Referring: JAYY ELI : + + Interpretation Summary 1) Normal left ventricular thickness, size, wall motion, and systolic function (EF 60-65%). 2) Normal right ventricular size and function. 3) There is a bioprosthetic aortic valve that is well seated and opens well (mean gradient 10mmHg). No aortic regurgitation is present. 4) Compared to the Echo done 08/02/2024, no signifcant change. Procedure: A two-dimensional transthoracic echocardiogram with color flow and Doppler was performed. The study quality was technically adequate. Comparison is made with the echocardiogram of 08/02/2024. The patient was in normal sinus rhythm during the exam. Left Ventricle: The left ventricle is normal in size and wall thickness. Left ventricular systolic function is normal. The ejection fraction is estimated to be 60-65%. There are no focal wall motion abnormalities. Grade I diastolic dysfunction with normal left atrial pressure. Right Ventricle: The right ventricle is normal in size and function. Atria: The left atrial size is normal. Right atrial size is normal. There is no Doppler evidence for an atrial septal defect. Mitral Valve: The mitral valve leaflets appear to open well. There is no mitral valve stenosis. There is trace mitral regurgitation. Aortic Valve: S/P TAVR. There is a bioprosthetic aortic valve. The prosthetic aortic valve is well-seated. No perivalvular leak noted. The peak aortic velocity is 2.2 m/sec. The aortic valve mean gradient is 10 mmHg. sev ratio: 0.57. Tricuspid Valve: The tricuspid valve is not well visualized, but is grossly normal. There is mild tricuspid regurgitation. Right ventricular systolic pressure is estimated to be 25 mmHg plus the clinically estimated CVP which cannot be estimated on this exam. Pulmonic Valve: The pulmonic valve is not well seen, but is grossly normal. There is trace pulmonic regurgitation. Great Vessels: The aortic root is normal size. The ascending aorta is normal in size. The aortic arch could not be visualized. The pulmonary is not well visualized. The inferior vena cava was not well visualized. Pericardium/ Pleura There is no pericardial effusion. MMode/2D Measurements & Calculations LVIDd: 4.0 cm LVOT diam: 2.0 cm LVIDs: 2.8 cm Ao root diam: 2.6 cm FS: 30.8 % asc Aorta Diam: 3.0 cm IVSd: 0.92 cm LVPWd: 0.94 cm LV howard. diameter/BSA (cm/m^2): 1.8 LV sys. diameter/BSA (cm/m^2): 1.2 LA A2 area: 18.1 cm2 RA area: 13.3 cm2 LA A4 area: 19.4 cm2 LA length (vol): 6.2 cm LA vol: 48.3 ml LA vol index: 21.6 ml/m2 RVD1 (basal): 2.2 cm RVD2 (mid): 1.9 cm TAPSE: 1.7 cm Doppler Measurements & Calculations Ao V2 max: 218.2 cm/sec LVOT Max Maciej: 115.9 cm/sec Ao V2 mean: 147.6 cm/sec LV V1 max P.4 mmHg Ao max P.0 mmHg LV V1 VTI: 22.5 cm Ao mean P.0 mmHg MAXI(I,D): 1.9 cm2 Ao V2 VTI: 39.2 cm MAXI(V,D): 1.7 cm2 sev ratio: 0.57 MAXI indexed to BSA (cm^2/m^2): 0.83 MV E max maciej: 84.4 cm/sec TR max maciej: 250.0 cm/sec MV A max maciej: 111.4 cm/sec TR max P.0 mmHg MV E/A: 0.76 PA V2 max: 103.8 cm/sec Med Peak E' Maciej: 6.6 cm/sec PA V2 mean: 76.8 cm/sec E/E' med: 12.7 PA mean P.6 mmHg Lat Peak E' Maciej: 5.7 cm/sec PA pr(Accel): 40.5 mmHg E/E' lat: 14.7 E/e' average: 13.7 MV dec time: 0.19 sec SV(LVOT): 73.2 ml Reading Physician:12:13 PM
== END ==
PROVIDERS: PCP Family Medicine; Referring Provider Internal Medicine Cardiovascular Disease; Visit Provider Internal Medicine Cardiovascular Disease
DX: I07.1 Rheumatic tricuspid insufficiency (principal); Z95.2 Presence of prosthetic heart valve
CPT/HCPCS: 93306

== ENCOUNTER 2025-09-22 13:53 | Outpatient (CLI) | payer MEDICARE, SELFPAY ==
[2025-09-22] VITALS (8 sets, daily range): BP systolic 113–122; BP diastolic 55–62; PULSE 70–91; RESP 16–20; TEMP 36.3; O2SAT 96–100
[2025-09-22] MEDS: MIDAZOLAM 2 MG/2 ML VIAL IV (15:25)
[2025-09-22] MEDS: BETAMETHASONE 30 MG/5 ML MDV 12 MG INJ (15:30)
--- NOTE | 2025-09-22 15:44 | P.PCN_ITS ---
Date/Time/Diagnoses Date of procedure: 09/22/25 Time of procedure: 15:44 Pre-procedure diagnosis: 1. HNP WITH RADICULAR FEATURES, 2. MULTILEVEL CENTRAL STENOSIS, Post-procedure diagnosis: same Procedure Notes Procedure: 1. FLUOROSCOPICALLY GUIDED CONTRAST CONTROLLED INTERLAMINAR EPIDURAL STEROID INJECTION - L3/4 Indications: Mere is referred by Dr. Jonas for treatment of Bilateral Foraminal Stenosis L>R LE symptoms. Physician: Cristino Horn Total Fluoroscopy time (seconds): 7 Total sedation minutes: 11 Complications: none Procedure in detail & Post-procedure care: FINDINGS Multilevel Central Spinal Stenosis with Nerve Root Compression DESCRIPTION OF PROCEDURE Fluoroscopically guided, contrast-controlled L3/4 translaminar epidural steroid injection. Following review of allergy and review of potential side effects and complications, including, but not necessarily limited to, infection, allergic reaction, local tissue breakdown, temporary as well as permanent nerve injury, paralysis, stroke and possible , the patient indicated that the patient understood and agreed to proceed. An informed consent document was signed by the patient, witnessed by a nurse, and placed in the patient's chart. Additionally, other treatment options including modalities, medications, and physical therapy were reviewed with the patient. After review of previous anaesthesic history and IV conscious sedation the patient was deemed safe to proceed with today?s procedure with IV conscious sedation as ASA class II designation. Safety time-out was performed to confirm patient ID, procedure to be performed and site of procedure. IV sedation was accomplished with a combination of 2mg of Versed was administered by the RN after DO order, titrated to patient comfort during the course of the procedure while the patient remained responsive to all verbal commands. In the prone position, following sterile prep and drape of the lumbar region, the L3/4 translaminar space was identified fluoroscopically. The skin was anesthetized via a 25-gauge, 1.5-inch needle with 1% lidocaine solution. At this point, a 22-gauge short bevel spinal needle was atraumatically introduced and advanced under fluoroscopic guidance into the region of the L3/4 translaminar space. Depth was confirmed on lateral view. Radiological data, including multiple fluoroscopic views of the lumbar spine, reveal a spinal needle at the L3/4 translaminar space. Lateral views then show placement of the needle in the epidural space. Subsequent views show contrast material flowing superiorly and inferiorly in the epidural space. No vascular or intrathecal uptake is observed. At this point, using loss of resistance technique with saline and air, the epidural space was entered. This was confirmed following negative aspiration with injection of approximately 1.5 cc of Isovue 200, showing excellent epidural flow without vascular or intrathecal uptake. At this point, 1cc of 0.25% ma rcaine solution combined with 3cc or 10mg of dexamethasone and 12mg of betamethasone was injected without incident. The patient tolerated the procedure well without signs or symptoms of complications prior to transfer to the recovery area continued monitoring without incident. The patient was then transferred to the recovery area where they were observed for an appropriate period of time after the injection. The patient reported a VAS score of 7 prior to the procedure and a post- procedure VAS of 1. POST OP INSTRUCTIONS The patient was provided a Pain Log to continue to record their response to the target-specific procedure prior to follow-up visit with their referring physician. Additionally, specific post-injection care instructions and a contact number to our office were provided if concerns arise regarding possible complications associated with the procedure are suspected.
== END 2025-09-22 16:45 | disposition home or self-care (01) ==
PROVIDERS: PCP Family Medicine; Referring Provider Family Medicine; Visit Provider Physical Medicine & Rehabilitation
DX: M51.16 Intervertebral disc disorders with radiculopathy, lumbar region (principal); M48.061 Spinal stenosis, lumbar region without neurogenic claudication
CPT/HCPCS: 62323; 99152; J0702; J1100; J2250